=== PATIENT | male | born 1955 | race Caucasian/White ===

== ENCOUNTER 2019-04-18 23:36 | Inpatient (IN) | payer MEDICARE ==
--- NOTE | 2019-04-18 23:59 | ED ---
Wound/Laceration HPI - General Chief Complaint: Wound/Laceration Stated Complaint: Toe Pain Time Seen by Provider: 04/18/19 23:55 Source: patient Mode of arrival: ambulatory Limitations: no limitations - History of Present Illness Initial Comments: Glucose is 63-year-old diabetic male who presents to the emergency department today as a transfer from an outside facility. Patient was seen and evaluated on April 14 at an urgent care where he was prescribed Keflex for infection, patient reports he's been compliant with that medication however he's developed progressively worsening pain and swelling in his left great toe. Today he sought care at the outside facility where labs and imaging were obtained. Patient is to be hyperglycemic with glucose in the high 400s, patient was also noted to have x-ray findings consistent with osteomyelitis. She was given vancomycin, Zosyn and IV fluids. She was transferred to our department for admission to hospital and further management Patient reports that today the pain in his great toe became excruciating which is what prompted him to seek care at the outside facility. Patient admits he is poorly compliant diabetic does not check his sugars at home. - Related Data Allergies Allergy/AdvReac Type Severity Reaction Status Date / Time No Known Allergies Allergy Verified 04/18/19 23:54 Review of Systems ROS Statement: Those systems with pertinent positive or pertinent negative responses have been documented in the HPI. ROS Other: All systems not noted in ROS Statement are negative. 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 History of Any Multi-Drug Resistant Organisms: None Reported Past Surgical History: No Surgical Hx Reported Past Psychological History: No Psychological Hx Reported Smoking Status: Current every day smoker Past Alcohol Use History: None Reported Past Drug Use History: None Reported General Exam - General Exam Comments Initial Comments: Physical Exam GENERAL: Patient is well-developed and well-nourished. Patient is nontoxic and well-hydrated and is in no distress. HENT: Normocephalic, Atraumatic. EYES: PERRL, EOMI PULMONARY: Unlabored respirations. No audible rales rhonchi or wheezing was noted. CARDIOVASCULAR: There is a regular rate and rhythm without any murmurs gallops or rubs. ABDOMEN: Soft and nontender with normal bowel sounds. SKIN: Erythema of great toe No obvious abscess : Deferred NEUROLOGIC: Patient is alert and oriented x3. Moving all extremities spontaneously MUSCULOSKELETAL: Normal extremities with adequate strength and full range of motion. No lower extremity swelling or edema. No calf tenderness. PSYCHIATRIC: Normal psychiatric evaluation Limitations: no limitations Course Vital Signs 04/18/19 23:45 Temperature 99.1 F Pulse Rate 80 Respiratory 18 Rate Blood Pressure 165/69 O2 Sat by Pulse 96 Oximetry Medical Decision Making - Medical Decision Making Patient was seen and evaluated, history is obtained from the patient and review of medical record Patient with a diagnosis of osteomyelitis of the great toe with no signs of abscess or free air patient received think and Zosyn prior to transfer next line patient was noted to be hyperglycemic outside facility repeat blood glucose is improving Labs were ordered Insulin sliding scale was ordered care was discussed with Dr. Boggs accepts the admission for osteomyelitis - Lab Data Result diagrams: 04/19/19 00:40 04/19/19 00:40 Lab Results 04/19/19 04/19/19 04/19/19 Range/Units 00:27 00:40 00:40 WBC 10.3 (3.8-10.6) k/uL RBC 5.63 (4.30-5.90) m/uL Hgb 15.2 (13.0-17.5) gm/dL Hct 46.7 (39.0-53.0) % MCV 82.9 (80.0-100.0) fL MCH 26.9 (25.0-35.0) pg MCHC 32.5 (31.0-37.0) g/dL RDW 14.3 (11.5-15.5) % Plt Count 311 (150-450) k/uL Neutrophils % 63 % Lymphocytes % 30 % Monocytes % 5 % Eosinophils % 1 % Basophils % 0 % Neutrophils # 6.4 (1.3-7.7) k/uL Lymphocytes # 3.1 (1.0-4.8) k/uL Monocytes # 0.5 (0-1.0) k/uL Eosinophils # 0.1 (0-0.7) k/uL Basophils # 0.0 (0-0.2) k/uL Sodium 137 (137-145) mmol/L Potassium 3.7 (3.5-5.1) mmol/L Chloride 102 (98-107) mmol/L Carbon Dioxide 26 (22-30) mmol/L Anion Gap 9 mmol/L BUN 12 (9-20) mg/dL Creatinine 0.59 L (0.66-1.25) mg/dL Est GFR (CKD-EPI)AfAm >90 (>60 ml/min/1.73 sqM) Est GFR (CKD-EPI)NonAf >90 (>60 ml/min/1.73 sqM) Glucose 306 H (74-99) mg/dL POC Glucose (mg/dL) 283 H (75-99) mg/dL POC Glu Sole Level[employer] Machine ID Waleska Medley Calcium 8.8 (8.4-10.2) mg/dL Total Bilirubin 0.6 (0.2-1.3) mg/dL AST 16 L (17-59) U/L ALT 11 L (21-72) U/L Alkaline Phosphatase 139 H (38-126) U/L Total Protein 6.6 (6.3-8.2) g/dL Albumin 3.5 (3.5-5.0) g/dL Disposition Clinical Impression: Osteomyelitis, Diabetes, Hyperglycemia Disposition: ADMITTED IP TO THIS HOSP Condition: Stable Referrals: Nonstaff,Physician [REFERRING] - 1-2 days
[2019-04-19 00:29] LABS: Glucose,Whole Blood 283 mg/dL (75-99)
[2019-04-19] MEDS ORDERED: INSULIN ASPART (NovoLOG) 100 UNIT/ML VIAL SQ ONE ×2 (00:56→02:50)
[2019-04-19 01:20] LABS: Basophils % (A) 0 %; Eosinophils # (A) 0.1 k/uL (0-0.7); Eosinophils % (A) 1 %; HCT 46.7 % (39.0-53.0); HGB 15.2 gm/dL (13.0-17.5); Lymphocytes # (A) 3.1 k/uL (1.0-4.8); Lymphocytes % (A) 30 %; MCH 26.9 pg (25.0-35.0); MCHC 32.5 g/dL (31.0-37.0); MCV 82.9 fL (80.0-100.0); Mean Platelet Volume 7.2; Monocytes # (A) 0.5 k/uL (0-1.0); Monocytes % (A) 5 %; Neutrophils # (A) 6.4 k/uL (1.3-7.7); Neutrophils % (A) 63 %; Platelet Count 311 k/uL (150-450); RBC 5.63 m/uL (4.30-5.90); RDW 14.3 % (11.5-15.5); WBC 10.3 k/uL (3.8-10.6)
[2019-04-19 01:34] LABS: ALT 11 U/L (21-72); AST 16 U/L (17-59); African American GFR (CKD) >90 (>60 ml/min/1.73 sqM); Albumin 3.5 g/dL (3.5-5.0); Alkaline Phosphatase 139 U/L (38-126); Blood Urea Nitrogen 12 mg/dL (9-20); Calcium 8.8 mg/dL (8.4-10.2); Carbon Dioxide 26 mmol/L (22-30); Chloride 102 mmol/L (98-107); Glucose 306 mg/dL (74-99); Total Bilirubin 0.6 mg/dL (0.2-1.3); Total Protein 6.6 g/dL (6.3-8.2)
[2019-04-19] MEDS ORDERED: NALOXONE 0.4 MG/ML 1 ML VIAL IV PRN (01:44)
[2019-04-19 01:46] LABS: Anion Gap 9 mmol/L; Potassium 3.7 mmol/L (3.5-5.1); Sodium 137 mmol/L (137-145)
[2019-04-19 02:41] LABS: Glucose,Whole Blood 320 mg/dL (75-99)
[2019-04-19 04:22] LABS: Glucose,Whole Blood 261 mg/dL (75-99)
[2019-04-19 08:02] LABS: Glucose,Whole Blood 209 mg/dL (75-99)
[2019-04-19] MEDS: INSULIN ASPART (NovoLOG) 100 UNIT/ML VIAL SQ SCH ×4 (08:46→20:40)
--- NOTE | 2019-04-19 08:58 | P.HPIM ---
History of Present Illness H&P Date: 04/19/19 The patient is a 63 yo M with a PMH of poorly controlled DM, HTN, HLD, and gout who presented to the ED as a transfer from [place] for L toe osteomyelitis. The patient notes that his symptoms started 7-8 days ago when he noticed gradually worsening redness and pain of the L great toe. He does not recall any inciting trauma to the area. He visited an urgent care center on 04/14/19 where he was believed to have cellulitis and was given Keflex which the patient states he was compliant with. The patient's symptoms however did not improve and he continued to have redness, swelling, and pain of the great toe for which he went to the ED at [place]. The patient underwent a L foot x-ray which revealed findings consistent with active ostemyelitis of the L great distal phalanx. He was given doses of Vancomysin and Zosyn and was subsequently transferred to [place] ED. At time of the interview, patient states his pain is a 2/10. He states he also has been feeling generally unwell over the past few days, though denied fever, or chills. Denied chest pain, SOB, abdominal pain, nausea, vomiting, or diarrhea. The patient notes that he has been poorly compliant with his diabetes medications due to lack of help from his family. He has a PCP though can not recall his name. Laboratory evaluation in the ED revealed a WBC of 10.3, Hgb 15.2, platelets 311, BUN 21, Cr 0.59, and Glucose 283 on admission. He was admitted for further management of L great toe osteomyelitis. Review of Systems Pertinent positives and negatives as discussed in HPI, a complete review of systems was performed and all other systems are negative. 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 History of Any Multi-Drug Resistant Organisms: None Reported Past Surgical History: No Surgical Hx Reported Past Psychological History: No Psychological Hx Reported Smoking Status: Current every day smoker Past Alcohol Use History: None Reported Past Drug Use History: None Reported - Past Family History Father Family Medical History: Diabetes Mellitus Medications and Allergies Home Medications Medication Instructions Recorded Confirmed Type Ibuprofen [Motrin] 800 mg PO Q6H PRN 04/19/19 04/19/19 History Latanoprost [Xalatan 0.005%] 1 drop BOTH EYES HS 04/19/19 04/19/19 History Allergies Allergy/AdvReac Type Severity Reaction Status Date / Time No Known Allergies Allergy Verified 04/19/19 07:18 Physical Exam Vitals: Vital Signs Temp Pulse Pulse Resp BP BP Pulse Ox 04/19/19 07:00 98.0 F 65 18 132/67 138/63 98 04/19/19 02:32 98.9 F 88 18 126/101 95 04/18/19 23:45 99.1 F 80 18 165/69 96 Intake and Output 04/18/19 04/19/19 04/19/19 22:59 06:59 14:59 Other: Weight 74.843 kg General: non toxic, no distress, appears older than stated age, normal weight Derm: L great toe swelling, erythema, and tenderness, no unusual ecchymoses, warm, dry Head: atraumatic, normocephalic, symmetric Eyes: EOMI, no lid lag, anicteric sclera, pupils equal round reactive to light ENT: Nose and ears atraumatic, no thrush, no pharyngeal erythema Neck: No thyromegaly, no cervical lymphadenopathy, trachea midline, supple Mouth: no lip lesion, mucus membranes moist Cardiovascular: S1S2 reg, no murmur, positive posterior tibial pulse bilateral, no edema, capillary refill less than 2 seconds Lungs: CTA bilateral, no rhonchi, no rales , no accessory muscle use Abdominal: soft, nontender to palpation, no guarding, no appreciable organomegaly, normal bowel sounds Ext: no gross muscle atrophy, muscle strength 5 out of 5 in all 4 extremities grossly, no contractures, Neuro: CN II-XI grossly intact, light touch intact all 4 extremities, finger to nose within normal limits, Psych: Alert, oriented, appropriate affect Results CBC & Chem 7: 04/19/19 00:40 04/19/19 00:40 Labs: Abnormal Lab Results - Last 24 Hours (Table) 04/19/19 04/19/19 04/19/19 Range/Units 00:27 00:40 02:31 Creatinine 0.59 L (0.66-1.25) mg/dL Glucose 306 H (74-99) mg/dL POC Glucose (mg/dL) 283 H 320 H (75-99) mg/dL AST 16 L (17-59) U/L ALT 11 L (21-72) U/L Alkaline Phosphatase 139 H (38-126) U/L 04/19/19 04/19/19 Range/Units 04:19 07:54 Creatinine (0.66-1.25) mg/dL Glucose (74-99) mg/dL POC Glucose (mg/dL) 261 H 209 H (75-99) mg/dL AST (17-59) U/L ALT (21-72) U/L Alkaline Phosphatase (38-126) U/L Assessment and Plan Plan: L great toe osteomyelitis -C/w Vancomycin and Zosyn -ID consult -F/u cultures DM with hyperglycemia -Obtain medication list from pharmacy -CALEB with FS -Levemir 10 U qhs HTN, HLD -Obtain updated medication list and resume as warranted DVT prophylaxis -Heparin The patient is admitted with an anticipated greater than 2 midnight stay for evaluation of osteomyelitis. CODE STATUS:Full Code Discussed with: Patient Anticipated discharge date: 04/22/[address]: Home A total of 40 minutes was spent on the care of this complex patient more than 50% of the time was spent in counseling and care coordination.
[2019-04-19] MEDS ORDERED: VANCOMYCIN IV PER PHARMACY 1 EACH MISC MISCELLANE PRN (09:13)
[2019-04-19] MEDS: NICOTINE 21MG/24HR PATCH TRANSDERM SCH (10:35)
[2019-04-19] MEDS: VANCOMYCIN 1,250 MG in SODIUM CHLORIDE 0.9% 250 ML IVPB SCH ×2 (10:35→17:07)
[2019-04-19] MEDS: PIPERACILLIN-TAZOBACTAM 3.375 GM in SODIUM CHLORIDE 0.9% 100 ML IVPB SCH ×2 (10:35→17:06)
[2019-04-19 12:00] LABS: Glucose,Whole Blood 272 mg/dL (75-99)
--- NOTE | 2019-04-19 17:04 | XR ---
EXAMINATION TYPE: XR foot complete LT DATE OF EXAM: 04/19/2019 CLINICAL HISTORY: Pain and swelling, possible osteomyelitis. TECHNIQUE: Frontal, lateral, and oblique images of the left foot are obtained. COMPARISON: None FINDINGS: There is lucency with cortical destruction throughout the first distal phalanx most promin ent proximal to mid aspects. Joint space is maintained. Incidental accessory ossicle near the navicul ar bone. Incidental moderate size superior and inferior calcaneal spurs [id number] diffuse subc utaneous edema is present. First toe is focal moderately swollen. IMPRESSION: There is confirmation of acute osteomyelitis changes radiographically involving majority of the first distal phalanx. A Yellow level critical message alert has been initiated for Tyrone Bliss MD via the [employer] Critical Results System on 04/19/2019 5:02 PM. This message alert has been sent to Tyrone Bliss MD via the preferences provided by the clinician for the receipt of Radiology Critical Findings. Message ID [id number].
[2019-04-19] MEDS: HEPARIN SODIUM,PORCINE 5,000 UNIT/ML 1 ML VIAL SQ SCH (17:07)
[2019-04-19 17:36] LABS: Glucose,Whole Blood 276 mg/dL (75-99)
[2019-04-19 20:22] LABS: Glucose,Whole Blood 321 mg/dL (75-99)
[2019-04-19] MEDS: INSULIN DETEMIR (LEVEMIR) 100 UNIT/ML SYR SQ SCH (20:40)
[2019-04-19] MEDS: LATANOPROST 0.005% OPHTH DROPS 2.5 ML BTL BOTH EYES SCH (20:41)
--- NOTE | 2019-04-19 23:04 | P.CONS ---
History of Present Illness - Reason for Consult Consult date: 04/19/19 - Chief Complaint diabetic foot ulcer - History of Present Illness 63-year-old male who has multiple medical troubles that includes diabetes, hypertension, obesity and heart disease presents as a transfer from outside hospital. The patient relates that he's had troubles over the last week with the foot. He's noticed increasing amount of swelling to the left great toe. He's applied some local care. Because the local walk-in clinic and Keflex was given. Despite this he had no improvement as he presented to his local hospital. There he was found evidence of leukocytosis, the significant diabetic foot ulceration and x-ray showed evidence of osteomyelitis and constantly was transferred to our facility for further evaluation. At this time he relates that he feels somewhat poorly due to the difficulty. He is concerned about the foot infection but has ongoing difficulties with his hyperglycemia. Review of Systems HEENT:Denies headache or acute visual change. Denies sinus or mouth discomforts. Denies neck stiffness or pain. Denies significant oral cavity pain. Denies difficulty on swallowing. Lungs: Denies significant shortness of breath, cough, sputum production, or hemoptysis. Cardiovascular: Denies significant shortness of breath, chest pain, chest wall pain, orthopnea, dyspnea on exertion, syncope Gastrointestinal:Denies nausea, vomiting, diarrhea, constipation, hematemesis, melena, hematochezia. No no significant change of bowel habit noticed. Musculoskeletal: denies significant myalgias or arthralgias. No new joint s welling. Denies new back pain. Skin: ulceration left great toe Neuro: Denies headache or visual change. Denies any new onset weakness or difficulty with ambulation. Denies falls or seizures. Psychiatric:Denies anxiety or depression. Endocrine: Denies significant fatigue, denies significant weight loss or weight gain. 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 History of Any Multi-Drug Resistant Organisms: None Reported Past Surgical History: No Surgical Hx Reported Past Anesthesia/Blood Transfusion Reactions: No Reported Reaction Past Psychological History: No Psychological Hx Reported Additional Psychological History / Comment(s): single. Lives with his sister. International travel. no experience. No animal exposures. Positive tobacco use. no significant alcohol or recreatiotional drug use Smoking Status: Current every day smoker Past Alcohol Use History: None Reported Past Drug Use History: None Reported - Past Family History Father Family Medical History: Diabetes Mellitus Medications and Allergies Home Medications and Allergies Comment(s): Current Medications Heparin Sodium (Porcine) (Heparin) 5,000 unit SQ Q8HR [facility] Last Admin: 04/19/19 17:07 Dose: 5,000 unit Documented by: Piperacillin Sod/Tazobactam (Sod 3.375 gm/ Sodium Chloride) 100 mls @ 25 mls/hr IVPB Q8HR [facility] Last Admin: 04/19/19 17:06 Dose: 25 mls/hr Documented by: Vancomycin HCl 1,250 mg/ (Sodium Chloride) 250 mls @ 125 mls/hr IVPB Q8H [facility] Last Admin: 04/19/19 17:07 Dose: 125 mls/hr Documented by: Insulin Aspart (Novolog) [address] [facility]; Protocol Last Admin: 04/19/19 20:40 Dose: 5 unit Documented by: Insulin Detemir (Levemir) [address] [facility] Last Admin: 04/19/19 20:40 Dose: 10 unit Documented by: Latanoprost (Xalatan 0.005%) [address] [facility] Last Admin: 04/19/19 20:41 Dose: 1 drops Documented by: Miscellaneous Information (Vancomycin Trough Due) 0 each MISCELLANE DIRECTED ONE Stop: 04/20/19 07:01 Naloxone HCl (Narcan) 0.2 mg IV Q2M PRN PRN Reason: Opioid Reversal Nicotine (Habitrol 21mg/24hr Patch) 1 patch TRANSDERM DAILY [facility] Last Admin: 04/19/19 10:35 Dose: 1 patch Documented by: Oxycodone/Acetaminophen (Percocet 5-325) 1 each PO Q6HR PRN PRN Reason: Pain Home Medications Medication Instructions Recorded Confirmed Type Ibuprofen [Motrin] 800 mg PO Q6H PRN 04/19/19 04/19/19 History Latanoprost [Xalatan 0.005%] 1 drop BOTH EYES HS 04/19/19 04/19/19 History Allergies Allergy/AdvReac Type Severity Reaction Status Date / Time No Known Allergies Allergy Verified 04/19/19 07:18 Physical Exam Vitals: Vital Signs Temp Pulse Pulse Pulse Pulse Resp BP 04/19/19 21:33 98.6 F 75 20 04/19/19 14:13 98.9 F 65 18 04/19/19 07:00 98.0 F 65 18 132/67 04/19/19 02:32 98.9 F 88 18 126/101 04/18/19 23:45 99.1 F 80 18 165/69 BP Pulse Ox 04/19/19 21:33 111/56 98 04/19/19 14:13 138/63 98 04/19/19 07:00 138/63 98 04/19/19 02:32 95 04/18/19 23:45 96 Intake and Output 04/19/19 04/19/19 04/19/19 06:59 14:59 22:59 Intake Total 350 350 Balance 350 350 Intake: Oral 350 350 Other: # Voids 1 Weight 74.843 kg HEENT: Anicteric conjunctiva are pink and moist nasal mucosa grossly intact without significant lesions, there is no thrush.poor dentition Neck: The neck is supple without significant lymphadenopathy or thyromegaly. Lungs: Symmetrical air entry with scattered wheezes in lung roman without shahriar bronchial sounds in all dullness or egophony. Heart: Regular rate and rhythm with an audible S1-S2, no S3 no S4. There is no significant murmur click or rub, PMI was nondisplaced. Abdomen: Positive bowel sounds soft and nontender without palpable masses or organomegaly. There was no guarding or rebound. Extremities: The upper extremities have excellent pulses they are symmetric, no significant petechiae or telangiectasia. No splinter hemorrhages were noted. The right lower extremity is without acute abnormality is. The left foot shows evidence of the ulceration and swelling to the left great toe with distinct erythema and deformity. There is some erythema and swelling onto the dorsum of the foot and minimal ascending erythema. It is not very tender. Neuro: Awake alert oriented to person place and time. There are no acute new gross focal sensory motor deficits. Results CBC & Chem 7: 04/19/19 00:40 04/19/19 00:40 Labs: Abnormal Lab Results - Last 24 Hours (Table) 04/19/19 04/19/19 04/19/19 Range/Units 00:27 00:40 02:31 ESR (0-15) mm/hr Creatinine 0.59 L (0.66-1.25) mg/dL Glucose 306 H (74-99) mg/dL POC Glucose (mg/dL) 283 H 320 H (75-99) mg/dL AST 16 L (17-59) U/L ALT 11 L (21-72) U/L Alkaline Phosphatase 139 H (38-126) U/L C-Reactive Protein (<10.0) mg/L 04/19/19 04/19/19 04/19/19 Range/Units 04:19 07:54 08:58 ESR (0-15) mm/hr Creatinine (0.66-1.25) mg/dL Glucose (74-99) mg/dL POC Glucose (mg/dL) 261 H 209 H (75-99) mg/dL AST (17-59) U/L ALT (21-72) U/L Alkaline Phosphatase (38-126) U/L C-Reactive Protein 173.5 H (<10.0) mg/L 04/19/19 04/19/19 04/19/19 Range/Units 08:58 11:57 17:34 ESR 55 H (0-15) mm/hr Creatinine (0.66-1.25) mg/dL Glucose (74-99) mg/dL POC Glucose (mg/dL) 272 H 276 H (75-99) mg/dL AST (17-59) U/L ALT (21-72) U/L Alkaline Phosphatase (38-126) U/L C-Reactive Protein (<10.0) mg/L 04/19/19 Range/Units 20:15 ESR (0-15) mm/hr Creatinine (0.66-1.25) mg/dL Glucose (74-99) mg/dL POC Glucose (mg/dL) 321 H (75-99) mg/dL AST (17-59) U/L ALT (21-72) U/L Alkaline Phosphatase (38-126) U/L C-Reactive Protein (<10.0) mg/L Laboratory Results WBC 10.3 k/uL (3.8-10.6) 04/19/19 00:40 RBC 5.63 m/uL (4.30-5.90) 04/19/19 00:40 Hgb 15.2 gm/dL (13.0-17.5) 04/19/19 00:40 Hct 46.7 % (39.0-53.0) 04/19/19 00:40 MCV 82.9 fL (80.0-100.0) 04/19/19 00:40 MCH 26.9 pg (25.0-35.0) 04/19/19 00:40 MCHC 32.5 g/dL (31.0-37.0) 04/19/19 00:40 RDW 14.3 % (11.5-15.5) 04/19/19 00:40 Plt Count 311 k/uL (150-450) 04/19/19 00:40 Neutrophils % 63 % 04/19/19 00:40 Lymphocytes % 30 % 04/19/19 00:40 Monocytes % 5 % 04/19/19 00:40 Eosinophils % 1 % 04/19/19 00:40 Basophils % 0 % 04/19/19 00:40 Neutrophils # 6.4 k/uL (1.3-7.7) 04/19/19 00:40 Lymphocytes # 3.1 k/uL (1.0-4.8) 04/19/19 00:40 Monocytes # 0.5 k/uL (0-1.0) 04/19/19 00:40 Eosinophils # 0.1 k/uL (0-0.7) 04/19/19 00:40 Basophils # 0.0 k/uL (0-0.2) 04/19/19 00:40 ESR 55 mm/hr (0-15) H 04/19/19 08:58 Sodium 137 mmol/L (137-145) 04/19/19 00:40 Potassium 3.7 mmol/L (3.5-5.1) 04/19/19 00:40 Chloride 102 mmol/L (98-107) 04/19/19 00:40 Carbon Dioxide 26 mmol/L (22-30) 04/19/19 00:40 Anion Gap 9 mmol/L 04/19/19 00:40 BUN 12 mg/dL (9-20) 04/19/19 00:40 Creatinine 0.59 mg/dL (0.66-1.25) L 04/19/19 00:40 Est GFR (CKD-EPI)AfAm >90 (>60 ml/min/1.73 sqM) 04/19/19 00:40 Est GFR (CKD-EPI)NonAf >90 (>60 ml/min/1.73 sqM) 04/19/19 00:40 Glucose 306 mg/dL (74-99) H 04/19/19 00:40 POC Glucose (mg/dL) 321 mg/dL (75-99) H 04/19/19 20:15 POC Glu Crystal Lapper Nehal Donohue 04/19/19 20:15 Calcium 8.8 mg/dL (8.4-10.2) 04/19/19 00:40 Total Bilirubin 0.6 mg/dL (0.2-1.3) 04/19/19 00:40 AST 16 U/L (17-59) L 04/19/19 00:40 ALT 11 U/L (21-72) L 04/19/19 00:40 Alkaline Phosphatase 139 U/L (38-126) H 04/19/19 00:40 C-Reactive Protein 173.5 mg/L (<10.0) H 04/19/19 08:58 Total Protein 6.6 g/dL (6.3-8.2) 04/19/19 00:40 Albumin 3.5 g/dL (3.5-5.0) 04/19/19 00:40 Assessment and Plan (1) Diabetes Current Visit: Yes Status: Acute Code(s): E11.9 - TYPE 2 DIABETES MELLITUS WITHOUT COMPLICATIONS SNOMED Code(s): 92155568 (2) Diabetic ulcer of foot associated with diabetes mellitus due to underlying condition, with necrosis of bone Narrative/Plan: 63-year-old male with multiple medical troubles presents to hospital with change to his left foot. He noticed some swelling erythema and ulceration that it was having some drainage. Despite oral outpatient antibiotic therapy he was not improving and constantly was seen by his local hospital. Transferred to our facility for further intervention for the osteomyelitis of the left great toe. The patient has diabetes and understands importance of good diabetes control. Antibiotic therapy has been initiated with vancomycin and Zosyn while cultures are pending. Follow-up x-rays requested to ensure the extent of the current osteomyelitis. If he has not had vascular studies he would need to have those performed. Smoking cessation is advised. Multivitamin with zinc is added to his regimen. Hopefully we'll the following the wound healing center after his discharge which may be a challenge but may do well for wound center therapy. Current Visit: Yes Status: Acute Code(s): E08.621 - DIABETES MELLITUS DUE TO UNDERLYING CONDITION W FOOT ULCER; L97.504 - NON-PRS CHRONIC ULCER OTH PRT UNSP FOOT W NECROSIS OF BONE SNOMED Code(s): 590862707
[2019-04-20] MEDS: HEPARIN SODIUM,PORCINE 5,000 UNIT/ML 1 ML VIAL SQ SCH ×4 (00:04→23:11)
[2019-04-20] MEDS: PIPERACILLIN-TAZOBACTAM 3.375 GM in SODIUM CHLORIDE 0.9% 100 ML IVPB SCH ×4 (00:04→23:11)
[2019-04-20] MEDS: VANCOMYCIN 1,250 MG in SODIUM CHLORIDE 0.9% 250 ML IVPB SCH ×3 (00:45→17:38)
[2019-04-20] MEDS: oxyCODONE-APAP 5-325MG 1 EACH TAB PO PRN ×2 (00:45→10:49)
[2019-04-20] MEDS ORDERED: VANCOMYCIN TROUGH DUE 1 EACH MISC MISCELLANE ONE (07:00)
[2019-04-20 07:27] LABS: Glucose,Whole Blood 156 mg/dL (75-99)
[2019-04-20] MEDS: INSULIN ASPART (NovoLOG) 100 UNIT/ML VIAL SQ SCH ×4 (07:29→21:30)
[2019-04-20] MEDS: NICOTINE 21MG/24HR PATCH TRANSDERM SCH (07:29)
[2019-04-20] MEDS: MULTIVITAMINS, THERA 1 EACH TAB PO SCH (07:29)
[2019-04-20 08:19] LABS: HCT 43.7 % (39.0-53.0); HGB 13.8 gm/dL (13.0-17.5); MCH 27.1 pg (25.0-35.0); MCHC 31.6 g/dL (31.0-37.0); MCV 85.6 fL (80.0-100.0); Mean Platelet Volume 7.2; Platelet Count 336 k/uL (150-450); RDW 14.1 % (11.5-15.5); WBC 9.2 k/uL (3.8-10.6)
[2019-04-20 08:41] LABS: ALT 16 U/L (21-72); AST 14 U/L (17-59); African American GFR (CKD) >90 (>60 ml/min/1.73 sqM); Albumin 3.4 g/dL (3.5-5.0); Alkaline Phosphatase 121 U/L (38-126); Anion Gap 8 mmol/L; Blood Urea Nitrogen 15 mg/dL (9-20); Carbon Dioxide 30 mmol/L (22-30); Chloride 102 mmol/L (98-107); Glucose 185 mg/dL (74-99); Potassium 3.8 mmol/L (3.5-5.1); Sodium 140 mmol/L (137-145); Total Bilirubin 0.5 mg/dL (0.2-1.3); Total Protein 6.4 g/dL (6.3-8.2)
[2019-04-20 11:23] LABS: Glucose,Whole Blood 258 mg/dL (75-99)
[2019-04-20 13:30] LABS: Hemoglobin A1C 15.6 % (4.0-6.0)
[2019-04-20 17:10] LABS: Glucose,Whole Blood 153 mg/dL (75-99)
--- NOTE | 2019-04-20 18:51 | P.PN ---
Subjective Progress Note Date: 04/20/19 Principal diagnosis: Osteomyelitis Patient was seen and examined. No acute events overnight. Patient reports no changes in his overall condition. He denies any chest pain, shortness of breath or palpitations. Objective - Vital Signs Vital signs: Vital Signs Temp 97.5 F L 04/20/19 12:42 Pulse 78 04/20/19 12:42 Resp 16 04/20/19 12:42 BP 167/72 04/20/19 12:42 Pulse Ox 97 04/20/19 12:42 Intake & Output 04/19/19 04/20/19 04/20/19 18:59 06:59 18:59 Intake Total 700 800 540 Balance 700 800 540 Intake: Oral 700 800 540 Other: # Voids 1 2 5 - Exam General: [non toxic], [no distress], [appears at stated age] Derm: [warm], [dry] Head: [atraumatic], [normocephalic], [symmetric] Eyes: [EOMI], [no lid lag], [anicteric sclera] Mouth: [no lip lesion], [mucus membranes moist] Cardiovascular: [S1S2 reg], [no murmur], [positive posterior tibial pulse bilateral], Lungs: [CTA bilateral], [no rhonchi, no rales] , [no accessory muscle use] Abdominal: [soft], [ nontender to palpation], [no guarding], [no appreciable organomegaly] Ext: [no gross muscle atrophy], [no edema], [left foot wrapped dressing clean d ry and intact] Neuro: [no focal neuro deficits] Psych: [Alert], [oriented], [appropriate affect] - Labs CBC & Chem 7: 04/20/19 08:00 04/20/19 08:00 Labs: Abnormal Lab Results - Last 24 Hours (Table) 04/19/19 04/19/19 04/20/19 Range/Units 08:58 20:15 06:57 Glucose (74-99) mg/dL POC Glucose (mg/dL) 321 H 156 H (75-99) mg/dL Hemoglobin A1c 15.6 H (4.0-6.0) % AST (17-59) U/L ALT (21-72) U/L Albumin (3.5-5.0) g/dL 04/20/19 04/20/19 04/20/19 Range/Units 08:00 11:20 17:07 Glucose 185 H (74-99) mg/dL POC Glucose (mg/dL) 258 H 153 H (75-99) mg/dL Hemoglobin A1c (4.0-6.0) % AST 14 L (17-59) U/L ALT 16 L (21-72) U/L Albumin 3.4 L (3.5-5.0) g/dL Microbiology - Last 24 Hours (Table) 04/19/19 08:58 Blood Culture - Preliminary Blood No Growth after 24 hours Assessment and Plan Assessment: Left great toe osteomyelitis Hyperglycemia with history of diabetes mellitus Hypertension As seen on x-ray. Plans: Continue vancomycin and Zosyn. Follow blood cultures. Follow ID consultation. Plans: Levemir 10 units at bedtime. Insulin sliding-scale. Regular Accu-Cheks. Hypoglycemic precautions. BP 167/72. Plans: Monitor vitals, adjust medications as necessary. We will discuss with infectious disease recommendations for antibiotics and the need for biopsy in this case. Patient is pending clinical improvement. Likely DC in 1-2 days.
[2019-04-20 20:39] LABS: Glucose,Whole Blood 241 mg/dL (75-99)
[2019-04-20] MEDS: INSULIN DETEMIR (LEVEMIR) 100 UNIT/ML SYR SQ SCH (21:30)
[2019-04-20] MEDS: LATANOPROST 0.005% OPHTH DROPS 2.5 ML BTL BOTH EYES SCH (21:30)
--- NOTE | 2019-04-20 23:22 | P.PN ---
Subjective Progress Note Date: 04/20/19 63-year-old male who has multiple medical troubles that includes diabetes, hypertension, obesity and heart disease presents as a transfer from outside hospital. The patient relates that he's had troubles over the last week with the foot. He's noticed increasing amount of swelling to the left great toe. He's applied some local care. Because the local walk-in clinic and Keflex was given. Despite this he had no improvement as he presented to his local hospital. There he was found evidence of leukocytosis, the significant diabetic foot ulceration and x-ray showed evidence of osteomyelitis and constantly was transferred to our facility for further evaluation. At this time he relates th at he feels somewhat poorly due to the difficulty. He is concerned about the foot infection but has ongoing difficulties with his hyperglycemia. 04/20/2019 the patient which is feeling somewhat better than at the toe is opened and drained some purulent material which was sent to the lab for culture. Blood sugars are slightly improved and the radiology department is verified the significant ostial myelitis left great toe of almost the entire distal phalanx. Patient denies fevers or chills discharge plan is being evaluated. Objective - Vital Signs Vital signs: Vital Signs Temp 98.0 F 04/20/19 20:35 Pulse 77 04/20/19 20:35 Resp 20 04/20/19 20:35 BP 150/70 04/20/19 20:35 Pulse Ox 99 04/20/19 20:35 Intake & Output 04/20/19 04/20/19 04/21/19 06:59 18:59 06:59 Intake Total 800 540 Output Total 400 Balance 800 540 -400 Intake: Oral 800 540 Output: Urine 400 Other: # Voids 2 5 - Exam HEENT: Anicteric conjunctiva are pink and moist nasal mucosa grossly intact without significant lesions, there is no thrush.poor dentition Neck: The neck is supple without significant lymphadenopathy or thyromegaly. Lungs: Symmetrical air entry with scattered wheezes in lung roman without shahriar bronchial sounds in all dullness or egophony. Heart: Regular rate and rhythm with an audible S1-S2, no S3 no S4. There is no significant murmur click or rub, PMI was nondisplaced. Abdomen: Positive bowel sounds soft and nontender without palpable masses or organomegaly. There was no guarding or rebound. Extremities: The upper extremities have excellent pulses they are symmetric, no significant petechiae or telangiectasia. No splinter hemorrhages were noted. The right lower extremity is without acute abnormality is. The left foot shows evidence of the ulceration and swelling to the left great toe with distinct erythema and deformity. there is now some drainage which was sent to the laboratory for culture. There is some erythema and swelling onto the dorsum of the foot and minimal ascending erythema. It is not very tender. Neuro: Awake alert oriented to person place and time. - Labs CBC & Chem 7: 04/20/19 08:00 04/20/19 08:00 Labs: Abnormal Lab Results - Last 24 Hours (Table) 04/19/19 04/20/19 04/20/19 Range/Units 08:58 06:57 08:00 Glucose 185 H (74-99) mg/dL POC Glucose (mg/dL) 156 H (75-99) mg/dL Hemoglobin A1c 15.6 H (4.0-6.0) % AST 14 L (17-59) U/L ALT 16 L (21-72) U/L Albumin 3.4 L (3.5-5.0) g/dL 04/20/19 04/20/19 04/20/19 Range/Units 11:20 17:07 20:38 Glucose (74-99) mg/dL POC Glucose (mg/dL) 258 H 153 H 241 H (75-99) mg/dL Hemoglobin A1c (4.0-6.0) % AST (17-59) U/L ALT (21-72) U/L Albumin (3.5-5.0) g/dL Microbiology - Last 24 Hours (Table) 04/19/19 08:58 Blood Culture - Preliminary Blood No Growth after 24 hours Laboratory Results WBC 9.2 k/uL (3.8-10.6) 04/20/19 08:00 RBC 5.10 m/uL (4.30-5.90) 04/20/19 08:00 Hgb 13.8 gm/dL (13.0-17.5) 04/20/19 08:00 Hct 43.7 % (39.0-53.0) 04/20/19 08:00 MCV 85.6 fL (80.0-100.0) 04/20/19 08:00 MCH 27.1 pg (25.0-35.0) 04/20/19 08:00 MCHC 31.6 g/dL (31.0-37.0) 04/20/19 08:00 RDW 14.1 % (11.5-15.5) 04/20/19 08:00 Plt Count 336 k/uL (150-450) 04/20/19 08:00 Neutrophils % 63 % 04/19/19 00:40 Lymphocytes % 30 % 04/19/19 00:40 Monocytes % 5 % 04/19/19 00:40 Eosinophils % 1 % 04/19/19 00:40 Basophils % 0 % 04/19/19 00:40 Neutrophils # 6.4 k/uL (1.3-7.7) 04/19/19 00:40 Lymphocytes # 3.1 k/uL (1.0-4.8) 04/19/19 00:40 Monocytes # 0.5 k/uL (0-1.0) 04/19/19 00:40 Eosinophils # 0.1 k/uL (0-0.7) 04/19/19 00:40 Basophils # 0.0 k/uL (0-0.2) 04/19/19 00:40 ESR 55 mm/hr (0-15) H 04/19/19 08:58 Sodium 140 mmol/L (137-145) 04/20/19 08:00 Potassium 3.8 mmol/L (3.5-5.1) 04/20/19 08:00 Chloride 102 mmol/L (98-107) 04/20/19 08:00 Carbon Dioxide 30 mmol/L (22-30) 04/20/19 08:00 Anion Gap 8 mmol/L 04/20/19 08:00 BUN 15 mg/dL (9-20) 04/20/19 08:00 Creatinine 0.76 mg/dL (0.66-1.25) 04/20/19 08:00 Est GFR (CKD-EPI)AfAm >90 (>60 ml/min/1.73 sqM) 04/20/19 08:00 Est GFR (CKD-EPI)NonAf >90 (>60 ml/min/1.73 sqM) 04/20/19 08:00 Glucose 185 mg/dL (74-99) H 04/20/19 08:00 POC Glucose (mg/dL) 241 mg/dL (75-99) H 04/20/19 20:38 POC Glu Dental Resident ID Isamar Bose 04/20/19 20:[address] Glu mg/dL 401 04/19/19 08:58 Hemoglobin A1c 15.6 % (4.0-6.0) H 04/19/19 08:58 Calcium 9.0 mg/dL (8.4-10.2) 04/20/19 08:00 Total Bilirubin 0.5 mg/dL (0.2-1.3) 04/20/19 08:00 AST 14 U/L (17-59) L 04/20/19 08:00 ALT 16 U/L (21-72) L 04/20/19 08:00 Alkaline Phosphatase 121 U/L (38-126) 04/20/19 08:00 C-Reactive Protein 173.5 mg/L (<10.0) H 04/19/19 08:58 Total Protein 6.4 g/dL (6.3-8.2) 04/20/19 08:00 Albumin 3.4 g/dL (3.5-5.0) L 04/20/19 08:00 Vancomycin Trough 14.2 ug/mL 04/20/19 08:00 Microbiology 04/19/19 08:58 Blood Blood Culture - Preliminary No Growth after 24 hours - Imaging and Cardiology x-ray of the foot is evaluated and reviewed personally show eviden left great toe osteomyelitis with significant involvement of the distal phalanx Assessment and Plan (1) Diabetes Current Visit: Yes Status: Acute Code(s): E11.9 - TYPE 2 DIABETES MELLITUS WITHOUT COMPLICATIONS SNOMED Code(s): 19743732 (2) Diabetic ulcer of foot associated with diabetes mellitus due to underlying condition, with necrosis of bone Narrative/Plan: 63-year-old male with multiple medical troubles presents to hospital with change to his left foot. He noticed some swelling erythema and ulceration that it was having some drainage. Despite oral outpatient antibiotic therapy he was not improving and constantly was seen by his local hospital. Transferred to our facility for further intervention for the osteomyelitis of the left great toe. The patient has diabetes and understands importance of good diabetes control. Antibiotic therapy has been initiated with vancomycin and Zosyn while cultures are pending. Follow-up x-rays requested to ensure the extent of the current osteomyelitis. If he has not had vascular studies he would need to have those performed. Smoking cessation is advised. Multivitamin with zinc is added to his regimen. Hopefully we'll the following the wound healing center after his discharge which may be a challenge but may do well for wound center therapy. 04/20/2019 the patient has evidence of the osteomyelitis left great toe. There is distinct destruction. With some drainage today he is feeling somewhat better. Cultures are process which will further help. The course of antibiotic therapy at discharge. Unclear with the discharge plan is going to be at this time but intravenous antibiotic therapy will be required and may require surgical intervention. May be a candidate for hyperbaric oxygen therapy. Arterial Dopplers requested. Current Visit: Yes Status: Acute Code(s): E08.621 - DIABETES MELLITUS DUE TO UNDERLYING CONDITION W FOOT ULCER; L97.504 - NON-PRS CHRONIC ULCER OTH PRT UNSP FOOT W NECROSIS OF BONE SNOMED Code(s): 208132585
[2019-04-21] MEDS: VANCOMYCIN 1,250 MG in SODIUM CHLORIDE 0.9% 250 ML IVPB SCH ×3 (01:04→17:38)
[2019-04-21] MEDS: MULTIVITAMINS, THERA 1 EACH TAB PO SCH (07:23)
[2019-04-21] MEDS: PIPERACILLIN-TAZOBACTAM 3.375 GM in SODIUM CHLORIDE 0.9% 100 ML IVPB SCH ×2 (07:23→15:08)
[2019-04-21] MEDS: NICOTINE 21MG/24HR PATCH TRANSDERM SCH (07:23)
[2019-04-21] MEDS: HEPARIN SODIUM,PORCINE 5,000 UNIT/ML 1 ML VIAL SQ SCH ×2 (07:24→15:08)
[2019-04-21 07:35] LABS: Glucose,Whole Blood 167 mg/dL (75-99)
[2019-04-21] MEDS: INSULIN ASPART (NovoLOG) 100 UNIT/ML VIAL SQ SCH ×4 (07:44→21:01)
[2019-04-21 11:33] LABS: Glucose,Whole Blood 267 mg/dL (75-99)
--- NOTE | 2019-04-21 12:08 | P.PN ---
Subjective Progress Note Date: 04/21/19 Principal diagnosis: Infected left toe Patient was seen and examined. No acute events overnight. Patient reports some drainage from the left toe, requesting dressings to be changed. He denies any chest pain, shortness of breath or palpitations. No nausea or vomiting. No fev er or chills. Objective - Vital Signs Vital signs: Vital Signs Temp 98.0 F 04/21/19 05:50 Pulse 71 04/21/19 05:50 Resp 20 04/21/19 05:50 BP 150/75 04/21/19 05:50 Pulse Ox 98 04/21/19 05:50 Intake & Output 04/20/19 04/21/19 04/21/19 18:59 06:59 18:59 Intake Total 540 Output Total 1500 Balance 540 -1500 Intake: Oral 540 Output: Urine 1500 Other: # Voids 5 - Exam General: [non toxic], [no distress], [appears at stated age] Derm: [warm], [dry] Head: [atraumatic], [normocephalic], [symmetric] Eyes: [EOMI], [no lid lag], [anicteric sclera] Mouth: [no lip lesion], [mucus membranes moist] Cardiovascular: [S1S2 reg], [no murmur], [positive DP pulse bilateral], Lungs: [CTA bilateral], [no rhonchi, no rales] , [no accessory muscle use] Abdominal: [soft], [ nontender to palpation], [no guarding], [no appreciable organomegaly] Ext: [no gross muscle atrophy], [no edema], [left foot wrapped with serosang uineous discharge] Neuro: [no focal neuro deficits] Psych: [Alert], [oriented], [appropriate affect] - Labs CBC & Chem 7: 04/20/19 08:00 04/20/19 08:00 Labs: Abnormal Lab Results - Last 24 Hours (Table) 04/19/19 04/20/19 04/20/19 Range/Units 08:58 17:07 20:38 POC Glucose (mg/dL) 153 H 241 H (75-99) mg/dL Hemoglobin A1c 15.6 H (4.0-6.0) % 04/21/19 04/21/19 Range/Units 07:26 11:16 POC Glucose (mg/dL) 167 H 267 H (75-99) mg/dL Hemoglobin A1c (4.0-6.0) % Microbiology - Last 24 Hours (Table) 04/19/19 08:58 Blood Culture - Preliminary Blood No Growth after 48 hours Assessment and Plan Assessment: Left great toe osteomyelitis Hyperglycemia with history of diabetes mellitus Hypertension As seen on x-ray. Plans: Continue vancomycin and Zosyn. Follow blood cultures. Follow wound cultures. Follow [facility]ABIO. Follow ID consultation. [id number] glucose 267. Plans: Levemir 10 units at bedtime. Insulin sliding-scale. Regular Accu-Cheks. Hypoglycemic precautions. BP 150/75. Plans: Monitor vitals, adjust medications as necessary. Plans for arterial duplex to assess for blood flow. If poor, will consult surgery. Continue IV antibiotics, follow up cultures. Likely DC in 1-2 days.
[2019-04-21 15:47] VITALS: BMI 23.0
[2019-04-21 17:21] LABS: Glucose,Whole Blood 239 mg/dL (75-99)
[2019-04-21 20:34] LABS: Glucose,Whole Blood 251 mg/dL (75-99)
[2019-04-21] MEDS: INSULIN DETEMIR (LEVEMIR) 100 UNIT/ML SYR SQ SCH (21:01)
[2019-04-21] MEDS: LATANOPROST 0.005% OPHTH DROPS 2.5 ML BTL BOTH EYES SCH (21:01)
[2019-04-22] MEDS: PIPERACILLIN-TAZOBACTAM 3.375 GM in SODIUM CHLORIDE 0.9% 100 ML IVPB SCH ×3 (00:03→16:43)
[2019-04-22] MEDS: HEPARIN SODIUM,PORCINE 5,000 UNIT/ML 1 ML VIAL SQ SCH ×3 (00:03→16:42)
--- NOTE | 2019-04-22 00:03 | P.PN ---
Subjective Progress Note Date: 04/21/19 63-year-old male who has multiple medical troubles that includes diabetes, hypertension, obesity and heart disease presents as a transfer from outside hospital. The patient relates that he's had troubles over the last week with the foot. He's noticed increasing amount of swelling to the left great toe. He's applied some local care. Because the local walk-in clinic and Keflex was given. Despite this he had no improvement as he presented to his local hospital. There he was found evidence of leukocytosis, the significant diabetic foot ulceration and x-ray showed evidence of osteomyelitis and constantly was transferred to our facility for further evaluation. At this time he relates th at he feels somewhat poorly due to the difficulty. He is concerned about the foot infection but has ongoing difficulties with his hyperglycemia. 04/20/2019 the patient which is feeling somewhat better than at the toe is opened and drained some purulent material which was sent to the lab for culture. Blood sugars are slightly improved and the radiology department is verified the significant ostial myelitis left great toe of almost the entire distal phalanx. Patient denies fevers or chills discharge plan is being evaluated. 04/21/2019 patient does seem to be feeling somewhat better. Is having no significant pain to the toe since the site has drained. X-ray reveals evidence of the osteomyelitis of the left great toe of the entire distal phalanx. Transfer to rehab is being evaluated at this time for ongoing antibiotic therapy. Objective - Vital Signs Vital signs: Vital Signs Temp 98.0 F 04/21/19 20:35 Pulse 71 04/21/19 20:35 Resp 18 04/21/19 20:35 BP 158/82 04/21/19 20:35 Pulse Ox 98 04/21/19 20:35 Intake & Output 04/21/19 04/21/19 04/22/19 06:59 18:59 06:59 Intake Total 1080 Output Total 1500 Balance -1500 1080 Weight 74.843 kg Intake: Oral 1080 Output: Urine 1500 Other: Voiding Method Urinal # Voids 3 1 - Exam HEENT: Anicteric conjunctiva are pink and moist nasal mucosa grossly intact wi thout significant lesions, there is no thrush.poor dentition Neck: The neck is supple without significant lymphadenopathy or thyromegaly. Lungs: Symmetrical air entry with scattered wheezes in lung roman without shahriar bronchial sounds in all dullness or egophony. Heart: Regular rate and rhythm with an audible S1-S2, no S3 no S4. There is no significant murmur click or rub, PMI was nondisplaced. Abdomen: Positive bowel sounds soft and nontender without palpable masses or organomegaly. There was no guarding or rebound. Extremities: The upper extremities have excellent pulses they are symmetric, no significant petechiae or telangiectasia. No splinter hemorrhages were noted. The right lower extremity is without acute abnormality is. The left foot shows evidence of the ulceration and swelling to the left great toe with distinct erythema and deformity. there is now some drainage which was sent to the laboratory for culture. There is some erythema and swelling onto the dorsum of the foot and minimal ascending erythema. It is not very tender. Neuro: Awake alert oriented to person place - Labs CBC & Chem 7: 04/20/19 08:00 04/20/19 08:00 Labs: Abnormal Lab Results - Last 24 Hours (Table) 04/21/19 04/21/19 04/21/19 Range/Units 07:26 11:16 17:12 POC Glucose (mg/dL) 167 H 267 H 239 H (75-99) mg/dL 04/21/19 Range/Units 20:32 POC Glucose (mg/dL) 251 H (75-99) mg/dL Microbiology - Last 24 Hours (Table) 04/19/19 08:58 Blood Culture - Preliminary Blood No Growth after 48 hours Laboratory Results WBC 9.2 k/uL (3.8-10.6) 04/20/19 08:00 RBC 5.10 m/uL (4.30-5.90) 04/20/19 08:00 Hgb 13.8 gm/dL (13.0-17.5) 04/20/19 08:00 Hct 43.7 % (39.0-53.0) 04/20/19 08:00 MCV 85.6 fL (80.0-100.0) 04/20/19 08:00 MCH 27.1 pg (25.0-35.0) 04/20/19 08:00 MCHC 31.6 g/dL (31.0-37.0) 04/20/19 08:00 RDW 14.1 % (11.5-15.5) 04/20/19 08:00 Plt Count 336 k/uL (150-450) 04/20/19 08:00 Neutrophils % 63 % 04/19/19 00:40 Lymphocytes % 30 % 04/19/19 00:40 Monocytes % 5 % 04/19/19 00:40 Eosinophils % 1 % 04/19/19 00:40 Basophils % 0 % 04/19/19 00:40 Neutrophils # 6.4 k/uL (1.3-7.7) 04/19/19 00:40 Lymphocytes # 3.1 k/uL (1.0-4.8) 04/19/19 00:40 Monocytes # 0.5 k/uL (0-1.0) 04/19/19 00:40 Eosinophils # 0.1 k/uL (0-0.7) 04/19/19 00:40 Basophils # 0.0 k/uL (0-0.2) 04/19/19 00:40 ESR 55 mm/hr (0-15) H 04/19/19 08:58 Sodium 140 mmol/L (137-145) 04/20/19 08:00 Potassium 3.8 mmol/L (3.5-5.1) 04/20/19 08:00 Chloride 102 mmol/L (98-107) 04/20/19 08:00 Carbon Dioxide 30 mmol/L (22-30) 04/20/19 08:00 Anion Gap 8 mmol/L 04/20/19 08:00 BUN 15 mg/dL (9-20) 04/20/19 08:00 Creatinine 0.76 mg/dL (0.66-1.25) 04/20/19 08:00 Est GFR (CKD-EPI)AfAm >90 (>60 ml/min/1.73 sqM) 04/20/19 08:00 Est GFR (CKD-EPI)NonAf >90 (>60 ml/min/1.73 sqM) 04/20/19 08:00 Glucose 185 mg/dL (74-99) H 04/20/19 08:00 POC Glucose (mg/dL) 251 mg/dL (75-99) H 04/21/19 20:32 POC Glu Director Of Sales Marketing ID Isamar Bose 04/21/19 20:[address] Glu mg/dL 401 04/19/19 08:58 Hemoglobin A1c 15.6 % (4.0-6.0) H 04/19/19 08:58 Calcium 9.0 mg/dL (8.4-10.2) 04/20/19 08:00 Total Bilirubin 0.5 mg/dL (0.2-1.3) 04/20/19 08:00 AST 14 U/L (17-59) L 04/20/19 08:00 ALT 16 U/L (21-72) L 04/20/19 08:00 Alkaline Phosphatase 121 U/L (38-126) 04/20/19 08:00 C-Reactive Protein 173.5 mg/L (<10.0) H 04/19/19 08:58 Total Protein 6.4 g/dL (6.3-8.2) 04/20/19 08:00 Albumin 3.4 g/dL (3.5-5.0) L 04/20/19 08:00 Vancomycin Trough 14.2 ug/mL 04/20/19 08:00 Microbiology 04/19/19 08:58 Blood Blood Culture - Preliminary No Growth after 48 hours Assessment and Plan (1) Diabetes Current Visit: Yes Status: Acute Code(s): E11.9 - TYPE 2 DIABETES MELLITUS WITHOUT COMPLICATIONS SNOMED Code(s): 83284269 (2) Diabetic ulcer of foot associated with diabetes mellitus due to underlying condition, with necrosis of bone Narrative/Plan: 63-year-old male with multiple medical troubles presents to hospital with change to his left foot. He noticed some swelling erythema and ulceration that it was having some drainage. Despite oral outpatient antibiotic therapy he was not improving and constantly was seen by his local hospital. Transferred to our facility for further intervention for the osteomyelitis of the left great toe. The patient has diabetes and understands importance of good diabetes control. Antibiotic therapy has been initiated with vancomycin and Zosyn while cultures are pending. Follow-up x-rays requested to ensure the extent of the current osteomyelitis. If he has not had vascular studies he would need to have those performed. Smoking cessation is advised. Multivitamin with zinc is added to his regimen. Hopefully we'll the following the wound healing center after his discharge which may be a challenge but may do well for wound center therapy. 04/20/2019 the patient has evidence of the osteomyelitis left great toe. There is distinct destruction. With some drainage today he is feeling somewhat better. Cultures are process which will further help. The course of antibiotic therapy at discharge. Unclear with the discharge plan is going to be at this time but intravenous antibiotic therapy will be required and may require rosales rgical intervention. May be a candidate for hyperbaric oxygen therapy. Arterial Dopplers requested. 04/21/2019 patient has evidence of osteomyelitis of the left great toe with evidence of bony destruction. Overall is feeling better in at this time Awaiting the current wound culture tophi finalize course of antibiotics time of his discharge to rehab to receive antibiotic therapy, local wound care which is currently with medical clinic and offloading. As well as improvement of his diabetes care. Patient's hemoglobin A1c was 15.6 with an average blood sugar greater than 400. Patient will need to have significant changes of his diabetes care to prevent foot and limb loss. Arterial Dopplers show evidence of the markedly diminished ankle-brachial index especially to the left lower extremity. If possible would have vascular surgery evaluate before his transfer. This would allow ongoing interventions in the outpatient setting. Current Visit: Yes Status: Acute Code(s): E08.621 - DIABETES MELLITUS DUE TO UNDERLYING CONDITION W FOOT ULCER; L97.504 - NON-PRS CHRONIC ULCER OTH PRT UNSP FOOT W NECROSIS OF BONE SNOMED Code(s): 372694831
[2019-04-22] MEDS: VANCOMYCIN 1,250 MG in SODIUM CHLORIDE 0.9% 250 ML IVPB SCH ×3 (02:41→17:57)
[2019-04-22 07:11] LABS: Glucose,Whole Blood 162 mg/dL (75-99)
[2019-04-22] MEDS: NICOTINE 21MG/24HR PATCH TRANSDERM SCH (07:55)
[2019-04-22] MEDS: INSULIN ASPART (NovoLOG) 100 UNIT/ML VIAL SQ SCH ×4 (07:56→21:09)
[2019-04-22] MEDS: MULTIVITAMINS, THERA 1 EACH TAB PO SCH (07:56)
[2019-04-22] MEDS ORDERED: VANCOMYCIN TROUGH DUE 1 EACH MISC MISCELLANE ONE (09:00)
[2019-04-22 09:45] LABS: African American GFR (CKD) >90 (>60 ml/min/1.73 sqM)
--- NOTE | 2019-04-22 11:18 | P.PN ---
Subjective Progress Note Date: 04/22/19 Principal diagnosis: osteomyelitis Patient was seen and examined. No acute events overnight. Patient with no complaints this morning. Upset that he can shower without removing his IV line. He denies any chest pain, shortness of breath or palpitations. Objective - Vital Signs Vital signs: Vital Signs Temp 97.8 F 04/22/19 04:15 Pulse 70 04/22/19 04:15 Resp 16 04/22/19 04:15 BP 119/67 04/22/19 04:15 Pulse Ox 94 L 04/22/19 04:15 Intake & Output 04/21/19 04/22/19 04/22/19 18:59 06:59 18:59 Intake Total 1080 Output Total 975 Balance 1080 -975 Weight 74.843 kg Intake: Oral 1080 Output: Urine 975 Other: Voiding Method Urinal # Voids 3 3 # Bowel Movements 0 - Exam General: [non toxic], [no distress], [appears at stated age] Derm: [warm], [dry] Head: [atraumatic], [normocephalic], [symmetric] Eyes: [EOMI], [no lid lag], [anicteric sclera] Mouth: [no lip lesion], [mucus membranes moist] Cardiovascular: [S1S2 reg], [no murmur], [positive DP pulse bilateral], Lungs: [CTA bilateral], [no rhonchi, no rales] , [no accessory muscle use] Abdominal: [soft], [ nontender to palpation], [no guarding], [no appreciable organomegaly] Ext: [no gross muscle atrophy], [no edema], [left foot wrapped with no serosanguineous discharge] Neuro: [no focal neuro deficits] Psych: [Alert], [oriented], [appropriate affect] - Labs CBC & Chem 7: 04/20/19 08:00 04/22/19 09:19 Labs: Abnormal Lab Results - Last 24 Hours (Table) 04/21/19 04/21/19 04/21/19 Range/Units 11:16 17:12 20:32 POC Glucose (mg/dL) 267 H 239 H 251 H (75-99) mg/dL 04/22/19 Range/Units 07:08 POC Glucose (mg/dL) 162 H (75-99) mg/dL Microbiology - Last 24 Hours (Table) 04/19/19 08:58 Blood Culture - Preliminary Blood No Growth after 72 hours Assessment and Plan Assessment: Left great toe osteomyelitis Hyperglycemia with history of diabetes mellitus Hypertension As seen on x-ray. ABG shows poor vascular flow. Plans: Continue vancomycin and Zosyn. Follow blood cultures. Follow wound cultures. Follow-up vascular surgery consultation. Follow ID consultation. [id number] glucose 162. Plans: Levemir 10 units at bedtime. Insulin sliding-scale. Regular Accu-Cheks. Hypoglycemic precautions. BP 119/67. Plans: Monitor vitals, adjust medications as necessary. Vascular surgery consulted for poor arterial flow. Continue IV antibiotics, follow up cultures. Will need PICC line after cultures are back. Plans for [facility] at [place].
--- NOTE | 2019-04-22 11:58 | P.ARTDOP ---
Arterial Doppler LOWER EXTREMITY ARTERIAL DOPPLER: DATE OF SERVICE: 04/21/2019 Reason for study: Ulcer left great toe Doppler waveforms: Multiphasic at both femorals and popliteals as well as the right posterior tibial. Other areas are atypical.. Pulse volume recording: Mild distal blunting. Pressure gradients: At the low thigh on the left, across the knee on the right, below the knee bilaterally. Ankle-brachial indices: 0.72 on the right and 0.64 on the left. Toe pressures: 68 on the right, [] on the left Impression: Moderate bilateral fem-pop disease. Clinical correlation recommended..
[2019-04-22 12:04] LABS: Glucose,Whole Blood 252 mg/dL (75-99)
--- NOTE | 2019-04-22 16:48 | P.CON ---
Consult Note - . Consult date: 04/22/19 Assessment/Plan:: Patient is a 63-year-old male who is evaluated today in reference to osteomyelitis of the left great toe. The patient first sought medical attention in this regard approximate 2 weeks ago in [place]. Osteomyelitis of the great toe was identified and the patient was transferred to this institution for further therapy/evaluation. Upon talking the patient the patient denies any trauma to the area. He does admit to bilateral hip and calf claudication occurring at greater than 1 block however less than 2 blocks of ambulation. There is no history of ischemic rest pain or nonhealing ulceration outside of the current issues involving his left great toe. Social history: The patient has a proximally [id number] tobacco use history and continued to smoke until a time of admission. ALLERGIES: Patient has NO KNOWN DRUG ALLERGIES. Surgical history: Left carotid endarterectomy. Past medical history is significant for diabetes mellitus, dyslipidemia, hypertension, as well as diabetic retinopathy and carotid occlusive disease. Physical examination revealed a 63-year-old male who appeared somewhat older than his stated age who is alert cooperative no apparent distress. Head was normocephalic and atraumatic. Neck supple to palpation. No adenopathy. Left carotid bruit is noted. Heart: Regular rate and rhythm without murmur. Lungs: Clear to auscultation. Abdomen: Soft nontender. Normal active bowel sounds. No abdominal hernia noted. No palpable abdominal aortic aneurysm noted. Lower extremities: Femoral, popliteal and posterior tibial pulse noted right lower extremity. On the left the femoral pulse was palpable wall all other pulses are absent. The left great toe is swollen and erythematous. Toes are freely movable and nontender. Modest edema of the left lower extremity is noted about the foot and ankle area. Review of laboratory values demonstrates a sodium of 137 potassium 3.7 chloride of 102 and carbon dioxide of 26. BUNs 12 and creatinine 0.59. White cell count 7.3 with a hemoglobin and hematocrit of 15.2 and 46.7 respectively. Glucose is 311. Radiographs demonstrates osteomyelitis and the left great toe. Arterial Doppler demonstrates an FABIO 0.72 on the right and 0.64 on the left. W aveforms are relatively monophasic throughout suggesting aortoiliac as well as femoral arterial occlusive disease washed pronounced on the left than on the right. Impression: #1 Bilateral lower extremity arterial occlusive disease most likely multilevel involving the aortoiliac as well as the femoral and possibly tibial arterial segments. This is more pronounced on the left than on the right. #2. Osteomyelitis left great toe #3. Diabetes mellitus. #4. Current tobacco abuse (approximately [id number]). #5. Dyslipidemia. #6. Hypertension. #7 Status post left carotid endarterectomy. Recommendation: #1 carotid duplex to evaluate for hemodynamically severe carotid occlusive disease. #2 CT angiogram of the abdomen, pelvis and lower extremities to evaluate for lower extremity arterial occlusive disease with I toward revascularization of the left lower extremity. Will follow this patient along with you during his hospital stay. Thank you very much for allowing me to participate in the care of your patient.
[2019-04-22 17:19] LABS: Glucose,Whole Blood 204 mg/dL (75-99)
--- NOTE | 2019-04-22 19:03 | US ---
EXAMINATION TYPE: US carotid duplex BILAT DATE OF EXAM: 04/22/2019 COMPARISON: NONE CLINICAL HISTORY: carotid stenosis. stenosis EXAM MEASUREMENTS: RIGHT: Peak Systolic Velocity (PSV) cm/sec ----- Right CCA: 50.3 ----- Right ICA: occluded ----- Right ECA: 164.8 ICA/CCA ratio: N/A RIGHT: End Diastole cm/sec ----- Right CCA: 0.0 ----- Right ICA: occluded ----- Right ECA: 7.1 LEFT: Peak Systolic Velocity (PSV) cm/sec ----- Left CCA: 94.7 ----- Left ICA: 118.5 ----- Left ECA: 379.1 ICA/CCA ratio: 1.3 LEFT: End Diastole cm/sec ----- Left CCA: 23.3 ----- Left ICA: 32.5 ----- Left ECA: 21.7 VERTEBRALS (direction of flow): Right Vertebral: Antegrade Left Vertebral: Antegrade Rhythm: Normal Right ICA appears occluded. Increased velocities bilateral ECA's, greater on the left. Moderate plaqu e noted left bifurcation IMPRESSION: There is antegrade flow in the vertebral arteries. There is complete occlusion right int ernal carotid artery. There is bilateral elevated velocity in the external carotid arteries suggestiv e of more than 70% stenosis. There is close to 50% stenosis of the left internal carotid artery. Criteria for Assigning % of Stenosis / Diameter reduction (Estimation based on the indirect measurements of the internal carotid artery velocities (ICA PSV). 1. Normal (no stenosis)=ICA PSV < 125 cm/s: ratio < 2.0: ICA EDV<40 cm/s. 2. Less than 50% stenosis=ICA PSV < 125 cm/s: ratio < 2.0: ICA EDV<40 cm/s. 3. 50 to 69% stenosis=ICA PSV of 125 to 230 cm/s: ration 2.0 ? 4.0: ICA EDV 40-100 cm/s. 4. Greater than 70% stenosis to near occlusion= ICA PSV > 230 cm/s: ratio > 4.0: ICA EDV > 100 cm/s. 5. Near occlusion= ICA PSV velocities may be low or undetectable: variable ratio and ICA EDV. 6. Total occlusion=unable to detect flow.
--- NOTE | 2019-04-22 19:28 | CT ---
CT angiogram of the chest and abdomen with runoffs. History left toe osteomyelitis. Femoral occlusion. Comparison none. TECHNIQUE: Multiple axial sections were obtained from the aortic arch to the bottom of the feet with intravenous contrast. The contrast was Isovue 125 mL. There are 3-D post processed images. FINDINGS: There is pulmonary emphysema and coarse pulmonary interstitial density. Thoracic aorta is atheromatou s. There is no thoracic aortic aneurysm. I see no filling defects in the pulmonary arteries. There ar e no hilar masses. There is patency of the celiac artery and superior mesenteric artery. There is patency of both renal arteries. There is plaque formation at the origins of the celiac artery and superior mesenteric arter y with up to 50% narrowing. There is diffuse plaque in the abdominal aorta. There is 3.4 cm aneurysm of the lower abdominal aorta with irregular plaque formation. Kidneys have normal size and contour. There is one severe cortical cyst medial left kidney. There is no hydronephrosis. Liver spleen and stomach pancreas gallbladder show no focal defect. There is no re troperitoneal adenopathy. There is no mesenteric edema. Bladder distends smoothly. There is patency of the common iliac arteries. There is extensive plaque formation in the iliac arter ies bilaterally. There is bilateral patency of the internal and external iliac arteries. There is bilateral patency of the profunda femoris artery and superficial femoral arteries. There is vertebral plaque formation in the femoral arteries. There is bilateral patency of the popliteal arter ies. There is patency of the tibial artery trifurcations bilaterally. There is arterial flow at both ankles in the anterior and posterior tibial arteries. There is some stenosis of the proximal right an terior tibial artery. There is subcutaneous edema around the feet. IMPRESSION: There is extensive plaque formation in the abdominal aorta and its branches. There is multilevel sten osis of the iliac and femoral arteries up to 50% luminal narrowing. There is aneurysm lower abdominal aorta with extensive plaque. There is 50% stenosis of the distal right common iliac artery. There is more than 50% stenosis proximal right anterior tibial artery. There is diffuse plaque and luminal na rrowing in the branches of tibial arteries bilaterally. There is moderate sigmoid diverticulosis without sign of diverticulitis.
[2019-04-22 20:19] LABS: Glucose,Whole Blood 263 mg/dL (75-99)
[2019-04-22] MEDS: LATANOPROST 0.005% OPHTH DROPS 2.5 ML BTL BOTH EYES SCH (21:10)
[2019-04-22] MEDS: INSULIN DETEMIR (LEVEMIR) 100 UNIT/ML SYR SQ SCH (21:10)
[2019-04-23] MEDS: PIPERACILLIN-TAZOBACTAM 3.375 GM in SODIUM CHLORIDE 0.9% 100 ML IVPB SCH ×4 (00:20→23:54)
[2019-04-23] MEDS: HEPARIN SODIUM,PORCINE 5,000 UNIT/ML 1 ML VIAL SQ SCH ×4 (00:21→23:53)
[2019-04-23] MEDS: VANCOMYCIN 1,250 MG in SODIUM CHLORIDE 0.9% 250 ML IVPB SCH ×3 (02:52→17:21)
[2019-04-23 07:10] LABS: Glucose,Whole Blood 226 mg/dL (75-99)
[2019-04-23] MEDS: MULTIVITAMINS, THERA 1 EACH TAB PO SCH (07:33)
[2019-04-23] MEDS: INSULIN ASPART (NovoLOG) 100 UNIT/ML VIAL SQ SCH ×4 (07:33→21:33)
[2019-04-23] MEDS: NICOTINE 21MG/24HR PATCH TRANSDERM SCH (07:33)
[2019-04-23 08:14] LABS: African American GFR (CKD) >90 (>60 ml/min/1.73 sqM)
--- NOTE | 2019-04-23 10:32 | P.PN ---
Subjective Progress Note Date: 04/23/19 Principal diagnosis: Left toe osteomyelitis Patient was seen and examined. No acute events overnight. Patient reports no changes in his condition. Wound culture sent yesterday after Mondays wound cultures were lost. Patient denies any chest pain, shortness of breath or palpi tations. No nausea or vomiting. No fever or chills. Objective - Vital Signs Vital signs: Vital Signs Temp 98.8 F 04/23/19 04:30 Pulse 66 04/23/19 04:30 Resp 22 04/23/19 04:30 BP 121/72 04/23/19 04:30 Pulse Ox 97 04/23/19 04:30 Intake & Output 04/22/19 04/23/19 04/23/19 18:59 06:59 18:59 Intake Total 830 900 240 Output Total 1325 Balance -495 900 240 Intake: Intake, IV Titration 350 Amount Piperacillin-Tazobactam 3 100 .375 gm In Sodium Chloride 0.9% 100 ml @ 25 mls/hr IVPB Q8HR [facility] Rx# :[id number] Vancomycin 1,250 mg In 250 Sodium Chloride 0.9% 250 ml @ 125 mls/hr IVPB Q8H [facility] Rx#:[id number] Oral 480 900 240 Output: Urine 1325 Other: Voiding Method Urinal # Voids 2 # Bowel Movements 0 - Exam General: [non toxic], [no distress], [appears at stated age] Derm: [warm], [dry] Head: [atraumatic], [normocephalic], [symmetric] Eyes: [EOMI], [no lid lag], [anicteric sclera] Mouth: [no lip lesion], [mucus membranes moist] Cardiovascular: [S1S2 reg], [no murmur], [positive DP pulse bilateral], Lungs: [CTA bilateral], [no rhonchi, no rales] , [no accessory muscle use] Abdominal: [soft], [ nontender to palpation], [no guarding], [no appreciable organomegaly] Ext: [no gross muscle atrophy], [no edema], [left foot wrapped with no serosanguineous discharge] Neuro: [no focal neuro deficits] Psych: [Alert], [oriented], [appropriate affect] - Labs CBC & Chem 7: 04/20/19 08:00 04/23/19 07:40 Labs: Abnormal Lab Results - Last 24 Hours (Table) 04/22/19 04/22/19 04/22/19 Range/Units 12:02 17:17 20:16 POC Glucose (mg/dL) 252 H 204 H 263 H (75-99) mg/dL 04/23/19 Range/Units 06:58 POC Glucose (mg/dL) 226 H (75-99) mg/dL Microbiology - Last 24 Hours (Table) 04/22/19 16:00 Gram Stain - Preliminary Toe - Left First Wound Culture - Preliminary 04/19/19 08:58 Blood Culture - Preliminary Blood No Growth after 72 hours Assessment and Plan Assessment: Left great toe osteomyelitis Severe carotid stenosis post left carotid endarterectomy PAD Hyperglycemia with history of diabetes mellitus Hypertension As seen on x-ray. Blood cultures negative at 72 hours. Plans: Continue vancomycin and Zosyn. Follow blood cultures. Follow wound cultures. Follow-up vascular surgery consultation. Follow ID consultation. As seen on carotid duplex. Plans: Follow vascular surgery recommendations. FABIO shows poor vascular flow. CTA aorta shows 50% of the iliac and femoral with 50% stenosis of the distal right common iliac artery, 50% stenosis proximal right anterior tibial artery. Plans: Start aspirin and Lipitor. Follow vascular surgery recommendation. [id number] glucose 226. Plans: Levemir 10 units at bedtime. Insulin sliding-scale. Regular Accu-Cheks. Hypoglycemic precautions. BP 121/72. Plans: Monitor vitals, adjust medications as necessary. Vascular surgery consulted for poor arterial flow and severe carotid stenosis. Continue IV antibiotics, follow up cultures. Will need PICC line after cultures are back. Plans for [facility] at [place].
[2019-04-23 12:17] LABS: Glucose,Whole Blood 215 mg/dL (75-99)
--- NOTE | 2019-04-23 16:40 | P.PN ---
Subjective Progress Note Date: 04/23/19 Patient seen and examined. No issues per nursing. Thinks his toes getting better Objective - Vital Signs Vital signs: Vital Signs Temp 97.5 F L 04/23/19 14:31 Pulse 75 04/23/19 14:31 Resp 18 04/23/19 14:31 BP 161/65 04/23/19 14:31 Pulse Ox 98 04/23/19 14:31 Intake & Output 04/22/19 04/23/19 04/23/19 18:59 06:59 18:59 Intake Total 830 900 830 Output Total 1325 1100 Balance -495 900 -270 Intake: IV 350 Piperacillin-Tazobactam 3 100 .375 gm In Sodium Chloride 0.9% 100 ml @ 25 mls/hr IVPB Q8HR [facility] Rx# :[id number] Vancomycin 1,250 mg In 250 Sodium Chloride 0.9% 250 ml @ 125 mls/hr IVPB Q8H [facility] Rx#:[id number] Intake, IV Titration 350 Amount Piperacillin-Tazobactam 3 100 .375 gm In Sodium Chloride 0.9% 100 ml @ 25 mls/hr IVPB Q8HR [facility] Rx# :[id number] Vancomycin 1,250 mg In 250 Sodium Chloride 0.9% 250 ml @ 125 mls/hr IVPB Q8H [facility] Rx#:[id number] Oral 480 900 480 Output: Urine 1325 1100 Other: Voiding Method Urinal # Voids 2 # Bowel Movements 0 0 - Exam No acute distress, sitting in bed comfortably No respiratory distress, on O2 Abdomen soft Bilateral lower extremities warm, dry. The left great toe cellulitis is improving. Some drainage of serous appearing fluid - Labs CBC & Chem 7: 04/20/19 08:00 04/23/19 07:40 Labs: Abnormal Lab Results - Last 24 Hours (Table) 04/22/19 04/22/19 04/23/19 Range/Units 17:17 20:16 06:58 POC Glucose (mg/dL) 204 H 263 H 226 H (75-99) mg/dL 04/23/19 Range/Units 12:07 POC Glucose (mg/dL) 215 H (75-99) mg/dL Microbiology - Last 24 Hours (Table) 04/19/19 08:58 Blood Culture - Preliminary Blood No Growth after 96 hours 04/22/19 16:00 Gram Stain - Preliminary Toe - Left First Wound Culture - Preliminary Assessment and Plan Assessment: #1 Bilateral lower extremity arterial occlusive disease #2. Osteomyelitis left great toe #3. Diabetes mellitus #4. Current tobacco abuse (approximately [id number]) #5. Dyslipidemia #6. Hypertension #7 Status post left carotid endarterectomy #8 right internal carotid artery occlusion Plan: Computed tomography scan and other imaging is reviewed. There modest diffuse arterial disease in the bilateral lower extremities but it is appear to be a patient AT and DP at the ankle. At this time the cellulitis appears to be improving clinically and he is responding to antibiotics. There is no emergent indication for operative intervention at this point. Would continue antibiotics for now and follow outpatient for claudication symptoms or if no further progr ession of healing
[2019-04-23 17:10] LABS: Glucose,Whole Blood 213 mg/dL (75-99)
[2019-04-23 20:25] LABS: Glucose,Whole Blood 205 mg/dL (75-99)
[2019-04-23] MEDS ORDERED: ATORVASTATIN 40 MG TAB PO SCH (21:00)
[2019-04-23] MEDS: LATANOPROST 0.005% OPHTH DROPS 2.5 ML BTL BOTH EYES SCH (21:33)
[2019-04-23] MEDS: INSULIN DETEMIR (LEVEMIR) 100 UNIT/ML SYR SQ SCH (21:33)
[2019-04-23 22:33] VITALS: RESP 20
[2019-04-24] MEDS: VANCOMYCIN 1,250 MG in SODIUM CHLORIDE 0.9% 250 ML IVPB SCH (01:42)
[2019-04-24 07:06] LABS: Glucose,Whole Blood 190 mg/dL (75-99)
[2019-04-24] MEDS: PIPERACILLIN-TAZOBACTAM 3.375 GM in SODIUM CHLORIDE 0.9% 100 ML IVPB SCH ×2 (08:07→16:08)
[2019-04-24] MEDS: INSULIN ASPART (NovoLOG) 100 UNIT/ML VIAL SQ SCH ×2 (08:08→12:53)
[2019-04-24] MEDS: MULTIVITAMINS, THERA 1 EACH TAB PO SCH (08:08)
[2019-04-24] MEDS: NICOTINE 21MG/24HR PATCH TRANSDERM SCH (08:08)
[2019-04-24] MEDS: HEPARIN SODIUM,PORCINE 5,000 UNIT/ML 1 ML VIAL SQ SCH ×2 (08:08→16:07)
--- NOTE | 2019-04-24 08:19 | P.PN ---
Subjective Progress Note Date: 04/24/19 Principal diagnosis: left toe osteomyelitis 63-year-old male with PMH of severe carotid stenosis post left carotid endarterectomy, PAD, diabetes mellitus and hypertension presents the ED for left toe wound. He was found to have osteomyelitis on x-ray. Patient was empirically started on vancomycin and Zosyn. Initially, cultures were collected but was lost due to system error. Repeat cultures of been negative so far. Vascular studies were performed which showed poor vascular flow to the lower extremities. As for surgery was consulted and recommended outpatient follow-up if trial of antibiotics did not help. Patient was seen and examined. No acute events overnight. Patient reports no changes in his overall condition. He denies any chest pain, shortness of breath or palpitations. Objective - Vital Signs Vital signs: Vital Signs Temp 98.3 F 04/24/19 05:19 Pulse 64 04/24/19 05:19 Resp 20 04/24/19 05:19 BP 146/78 04/24/19 05:19 Pulse Ox 98 04/24/19 05:19 Intake & Output 04/23/19 04/24/19 04/24/19 18:59 06:59 18:59 Intake Total 830 300 Output Total 1900 Balance -1070 300 Intake: IV 350 Piperacillin-Tazobactam 3 100 .375 gm In Sodium Chloride 0.9% 100 ml @ 25 mls/hr IVPB Q8HR [facility] Rx# :[id number] Vancomycin 1,250 mg In 250 Sodium Chloride 0.9% 250 ml @ 125 mls/hr IVPB Q8H [facility] Rx#:[id number] Oral 480 300 Output: Urine 1900 Other: Voiding Method Urinal # Voids 1 2 # Bowel Movements 0 0 - Exam General: [non toxic], [no distress], [appears at stated age] Derm: [warm], [dry] Head: [atraumatic], [normocephalic], [symmetric] Eyes: [EOMI], [no lid lag], [anicteric sclera] Mouth: [no lip lesion], [mucus membranes moist] Cardiovascular: [S1S2 reg], [no murmur], [positive DP pulse bilateral], Lungs: [CTA bilateral], [no rhonchi, no rales] , [no accessory muscle use] Abdominal: [soft], [ nontender to palpation], [no guarding], [no appreciable organomegaly] Ext: [no gross muscle atrophy], [no edema], [left foot wrapped with no serosanguineous discharge] Neuro: [no focal neuro deficits] Psych: [Alert], [oriented], [appropriate affect] - Labs CBC & Chem 7: 04/20/19 08:00 04/23/19 07:40 Labs: Abnormal Lab Results - Last 24 Hours (Table) 04/23/19 04/23/19 04/23/19 Range/Units 12:07 17:06 20:21 POC Glucose (mg/dL) 215 H 213 H 205 H (75-99) mg/dL 04/24/19 Range/Units 07:02 POC Glucose (mg/dL) 190 H (75-99) mg/dL Microbiology - Last 24 Hours (Table) 04/19/19 08:58 Blood Culture - Preliminary Blood No Growth after 96 hours Assessment and Plan Assessment: Left great toe osteomyelitis Severe carotid stenosis post left carotid endarterectomy PAD Hyperglycemia with history of diabetes mellitus Hypertension As seen on x-ray. Blood cultures negative at 96 hours. Wound cultures prelim negative. Plans: Continue vancomycin and Zosyn. Follow blood cultures. Follow wound cultures. Follow-up vascular surgery consultation. Follow ID consultation. As seen on carotid duplex. Plans: Vascular surgery follow-up outpatient. FABIO shows poor vascular flow. CTA aorta shows 50% of the iliac and femoral with 50% stenosis of the distal right common iliac artery, 50% stenosis proximal right anterior tibial artery. Vascular surgery recommendations for outpatient follow-up. Plans: Start aspirin and Lipitor. Vascular surgery follow-up outpatient. Prlxj-pj-zsjr glucose 190. Plans: Levemir 10 units at bedtime. Insulin sliding-scale. Regular Accu-Cheks. Hypoglycemic precautions. BP 146/78. Plans: Monitor vitals, adjust medications as necessary. Vascular surgery recommends outpatient follow up. Patient on IV antibiotics, cultures so far negative. We will discuss with Dr. Marie regarding choice of antibiotics. We will need PICC line after cultures are back. Plans for [facility] at [place].
[2019-04-24] MEDS ORDERED: ASPIRIN 81 MG PO SCH (09:00)
[2019-04-24 09:56] LABS: Basophils # (A) 0.1 k/uL (0-0.2); Basophils % (A) 1 %; Eosinophils # (A) 0.3 k/uL (0-0.7); Eosinophils % (A) 4 %; HCT 43.3 % (39.0-53.0); HGB 14.1 gm/dL (13.0-17.5); Hypochromasia Slight; Lymphocytes # (A) 2.5 k/uL (1.0-4.8); Lymphocytes % (A) 32 %; MCH 27.6 pg (25.0-35.0); MCHC 32.5 g/dL (31.0-37.0); Mean Platelet Volume 7.4; Monocytes # (A) 0.4 k/uL (0-1.0); Monocytes % (A) 5 %; Neutrophils # (A) 4.5 k/uL (1.3-7.7); Neutrophils % (A) 57 %; Platelet Count 332 k/uL (150-450); RBC 5.09 m/uL (4.30-5.90); RDW 14.4 % (11.5-15.5); WBC 7.8 k/uL (3.8-10.6)
[2019-04-24 09:57] LABS: INR 0.9 (<1.2); Prothrombin Time 10.2 sec (9.0-12.0)
[2019-04-24 10:03] LABS: ALT <6 U/L (21-72); AST 15 U/L (17-59); African American GFR (CKD) >90 (>60 ml/min/1.73 sqM); Albumin 3.4 g/dL (3.5-5.0); Alkaline Phosphatase 133 U/L (38-126); Anion Gap 9 mmol/L; Blood Urea Nitrogen 16 mg/dL (9-20); Calcium 9.3 mg/dL (8.4-10.2); Carbon Dioxide 26 mmol/L (22-30); Chloride 105 mmol/L (98-107); Glucose 219 mg/dL (74-99); Sodium 140 mmol/L (137-145); Total Bilirubin 0.5 mg/dL (0.2-1.3); Total Protein 6.5 g/dL (6.3-8.2)
--- NOTE | 2019-04-24 11:12 | IR ---
PICC LINE PLACEMENT: HISTORY: Infection requiring long-term antibiotic therapy PROCEDURE: Ultrasound and fluoroscopic guidance of PICC line placement. COMPLICATIONS: None ANESTHESIA: 1. 1% Lidocaine locally. FINDINGS/TECHNIQUE: The procedure was explained to the patient. The risks, complications, benefits and alternatives were discussed and any questions were answered. Informed consent was obtained. The patient was placed supine on the fluoroscopic table and prepped and draped in the usual sterile fash ion. Utilizing a 21 gauge needle and sonographic and fluoroscopic guidance, access in the left basi lic vein was achieved and there is placement of a 0.018 guidewire. The vein is patent. A 4-F sheath was placed over the guidewire. The guidewire and dilator were removed and a 4-F. PICC line was plac ed through the sheath with the tip at the level of the SVC. The sheath was removed, the catheter was flushed and sutured into position. The patient was stable throughout the procedure and remained sta ble upon discharge from the Department of Radiology. The vein puncture was patent under ultrasound. A lundberg scale image was obtained to document patency of the vein punctured. All elements of the maximal barrier technique were utilized. FLUOROSCOPY TIME: 0.1 minute and one image submitted IMPRESSION: Successful PICC line placement under ultrasound and fluoroscopic guidance.
[2019-04-24 12:31] LABS: Glucose,Whole Blood 235 mg/dL (75-99)
[2019-04-24 13:43] VITALS: BP 150/73; PULSE 71; TEMP 97.8
--- NOTE | 2019-04-24 15:14 | P.DS ---
Providers Date of admission: 04/19/19 01:49 Expected date of discharge: 04/24/19 Attending physician: Juju Boggs MD Consults: 04/19/19 08:34 Consult Physician Routine Consulting Provider: Tyrone Bliss Consult Reason/Comments: osteomylitis left great toe Do you want consulting provider notified?: Yes 04/22/19 10:35 Consult Physician Routine Consulting Provider: Ac Nj Consult Reason/Comments: OM with poor arterial flow to foot. Do you want consulting provider notified?: Yes Primary care physician: Stated None Hospital Course: 63-year-old male with PMH of severe carotid stenosis post left carotid endarterectomy, PAD, diabetes mellitus and hypertension presents the ED for left toe wound. He was found to have osteomyelitis on x-ray. Patient was empirically started on vancomycin and Zosyn. Initially, cultures were collected but was lost due to system error. Repeat cultures of been negative so far. Vascular studies were performed which showed poor vascular flow to the lower extremities. As for surgery was consulted and recommended outpatient follow-up if trial of antibiotics did not help. Osteomyelitis was seen on foot x-ray. Blood cultures are negative at 96 hours. Wound cultures were prelim negative at the time of discharge. Patient was initially started on vancomycin and Zosyn. Infectious disease was consulted and recommended discharge with PICC line and Zosyn. ABIs were obtained which showed poor vascular flow to the lower extremities. CTA of the aorta showed 50% of the iliac and femoral with 50% stenosis of the distal right common iliac artery, 50% stenosis of the proximal right anterior tibial artery. Vascular surgery recommended outpatient follow-up. As discussed with Dr. Bliss, plan is to DC patient home to [facility] with PICC line for IV Zosyn. Left great toe osteomyelitis Severe carotid stenosis post left carotid endarterectomy PAD Hyperglycemia with history of diabetes mellitus Hypertension Pertinent Studies: Foot x-ray, FABIO, carotid ultrasound, CTA aorta with runoff Patient Condition at Discharge: Stable Plan - Discharge Summary New Discharge Prescriptions: New Piperacillin-Tazobactam [Zosyn] 3.375 gm IVPB Q6H #168 bag Aspirin 81 mg PO DAILY #30 chew Insulin Detemir (Levemir) [Levemir] 10 unit SQ HS #0 syr Atorvastatin [Lipitor] 40 mg PO HS #30 tab Multivitamins, Thera [Multivitamin (formulary)] 1 each PO DAILY tab oxyCODONE-APAP 5-325MG [Percocet 5-325 mg] 1 each PO Q6HR PRN #12 tab PRN Reason: Pain Piperacillin-Tazobactam [Zosyn] 3.375 gm IVPB Q8HR vial Continue Latanoprost [Xalatan 0.005%] 1 drop BOTH EYES HS Ibuprofen [Motrin] 800 mg PO Q6H PRN PRN Reason: Pain Discharge Medication List Ibuprofen [Motrin] 800 mg PO Q6H PRN 04/19/19 [History] Latanoprost [Xalatan 0.005%] 1 drop BOTH EYES HS 04/19/19 [History] Piperacillin-Tazobactam [Zosyn] 3.375 gm IVPB Q6H #168 bag 04/21/19 [Rx] Aspirin 81 mg PO DAILY #30 chew 04/24/19 [Rx] Atorvastatin [Lipitor] 40 mg PO HS #30 tab 04/24/19 [Rx] Insulin Detemir (Levemir) [Levemir] 10 unit SQ HS #0 syr 04/24/19 [Rx] Multivitamins, Thera [Multivitamin (formulary)] 1 each PO DAILY tab 04/24/19 [Rx] Piperacillin-Tazobactam [Zosyn] 3.375 gm IVPB Q8HR vial 04/24/19 [Rx] oxyCODONE-APAP 5-325MG [Percocet 5-325 mg] 1 each PO Q6HR PRN #12 tab 04/24/19 [Rx] Follow up Appointment(s)/Referral(s): Nonstaff,Physician [REFERRING] - 1-2 days Tyrone Bliss MD [STAFF PHYSICIAN] - 1 Week Ambulatory/Diagnostic Orders: Basic Metabolic Panel [LAB.AMB] Location: None Selected Complete Blood Count w/diff [LAB.AMB] Location: None Selected Miscellaneous Lab Order [LAB.AMB] Location: None Selected Discharge/Stand Alone Forms: Work/Release Restrictions Form Discharge Disposition: TRANSFER TO [facility]
--- NOTE | 2019-04-24 17:43 | P.PN ---
Subjective Progress Note Date: 04/24/19 63-year-old male who has multiple medical troubles that includes diabetes, hypertension, obesity and heart disease presents as a transfer from outside hospital. The patient relates that he's had troubles over the last week with the foot. He's noticed increasing amount of swelling to the left great toe. He's applied some local care. Because the local walk-in clinic and Keflex was given. Despite this he had no improvement as he presented to his local hospital. There he was found evidence of leukocytosis, the significant diabetic foot ulceration and x-ray showed evidence of osteomyelitis and constantly was transferred to our facility for further evaluation. At this time he relates th at he feels somewhat poorly due to the difficulty. He is concerned about the foot infection but has ongoing difficulties with his hyperglycemia. 04/20/2019 the patient which is feeling somewhat better than at the toe is opened and drained some purulent material which was sent to the lab for culture. Blood sugars are slightly improved and the radiology department is verified the significant ostial myelitis left great toe of almost the entire distal phalanx. Patient denies fevers or chills discharge plan is being evaluated. 04/21/2019 patient does seem to be feeling somewhat better. Is having no significant pain to the toe since the site has drained. X-ray reveals evidence of the osteomyelitis of the left great toe of the entire distal phalanx. Transfer to rehab is being evaluated at this time for ongoing antibiotic therapy. 04/24/2019 patient is starting to feel somewhat better. He is very anxious to go home. He does have confusion and some dementia Objective - Vital Signs Vital signs: Vital Signs Temp 97.8 F 04/24/19 13:35 Pulse 71 04/24/19 13:35 Resp 20 04/24/19 13:35 BP 150/73 04/24/19 13:35 Pulse Ox 97 04/24/19 13:35 Intake & Output 04/23/19 04/24/19 04/24/19 18:59 06:59 18:59 Intake Total 830 300 480 Output Total 1900 Balance -1070 300 480 Intake: IV 350 Piperacillin-Tazobactam 3 100 .375 gm In Sodium Chloride 0.9% 100 ml @ 25 mls/hr IVPB Q8HR [facility] Rx# :[id number] Vancomycin 1,250 mg In 250 Sodium Chloride 0.9% 250 ml @ 125 mls/hr IVPB Q8H [facility] Rx#:[id number] Oral 480 300 480 Output: Urine 1900 Other: Voiding Method Urinal # Voids 1 2 2 # Bowel Movements 0 0 0 - Exam HEENT: Anicteric conjunctiva are pink and moist nasal mucosa grossly intact without significant lesions, there is no thrush.poor dentition Neck: The neck is supple without significant lymphadenopathy or thyromegaly. Lungs: Symmetrical air entry with scattered wheezes in lung roman without shahriar bronchial sounds in all dullness or egophony. Heart: Regular rate and rhythm with an audible S1-S2, no S3 no S4. There is no significant murmur click or rub, PMI was nondisplaced. Abdomen: Positive bowel sounds soft and nontender without palpable masses or organomegaly. There was no guarding or rebound. Extremities: The upper extremities have excellent pulses they are symmetric, no significant petechiae or telangiectasia. No splinter hemorrhages were noted. The right lower extremity is without acute abnormality is. The left foot shows evidence of the ulceration and swelling to the left great toe with distinct erythema and deformity. there is now some drainage which was sent to the laboratory for culture. There is some erythema and swelling onto the dorsum of the foot and minimal ascending erythema. It is not very tender. Neuro: Awake alert oriented to person place - Labs CBC & Chem 7: 04/24/19 09:23 04/24/19 09:23 Labs: Abnormal Lab Results - Last 24 Hours (Table) 04/23/19 04/24/19 04/24/19 Range/Units 20:21 07:02 09:23 Glucose 219 H (74-99) mg/dL POC Glucose (mg/dL) 205 H 190 H (75-99) mg/dL AST 15 L (17-59) U/L ALT <6 L (21-72) U/L Alkaline Phosphatase 133 H (38-126) U/L Albumin 3.4 L (3.5-5.0) g/dL 04/24/19 Range/Units 12:30 Glucose (74-99) mg/dL POC Glucose (mg/dL) 235 H (75-99) mg/dL AST (17-59) U/L ALT (21-72) U/L Alkaline Phosphatase (38-126) U/L Albumin (3.5-5.0) g/dL Microbiology - Last 24 Hours (Table) 04/19/19 08:58 Blood Culture - Preliminary Blood No Growth after 120 hours Laboratory Results WBC 7.8 k/uL (3.8-10.6) 04/24/19 09:23 RBC 5.09 m/uL (4.30-5.90) 04/24/19 09:23 Hgb 14.1 gm/dL (13.0-17.5) 04/24/19 09:23 Hct 43.3 % (39.0-53.0) 04/24/19 09:23 MCV 85.0 fL (80.0-100.0) 04/24/19 09:23 MCH 27.6 pg (25.0-35.0) 04/24/19 09:23 MCHC 32.5 g/dL (31.0-37.0) 04/24/19 09:23 RDW 14.4 % (11.5-15.5) 04/24/19 09:23 Plt Count 332 k/uL (150-450) 04/24/19 09:23 Neutrophils % 57 % 04/24/19 09:23 Lymphocytes % 32 % 04/24/19 09:23 Monocytes % 5 % 04/24/19 09:23 Eosinophils % 4 % 04/24/19 09:23 Basophils % 1 % 04/24/19 09:23 Neutrophils # 4.5 k/uL (1.3-7.7) 04/24/19 09:23 Lymphocytes # 2.5 k/uL (1.0-4.8) 04/24/19 09:23 Monocytes # 0.4 k/uL (0-1.0) 04/24/19 09:23 Eosinophils # 0.3 k/uL (0-0.7) 04/24/19 09:23 Basophils # 0.1 k/uL (0-0.2) 04/24/19 09:23 Hypochromasia Slight 04/24/19 09:23 ESR 55 mm/hr (0-15) H 04/19/19 08:58 PT 10.2 sec (9.0-12.0) 04/24/19 09:23 INR 0.9 (<1.2) 04/24/19 09:23 Sodium 140 mmol/L (137-145) 04/24/19 09:23 Potassium 4.0 mmol/L (3.5-5.1) 04/24/19 09:23 Chloride 105 mmol/L (98-107) 04/24/19 09:23 Carbon Dioxide 26 mmol/L (22-30) 04/24/19 09:23 Anion Gap 9 mmol/L 04/24/19 09:23 BUN 16 mg/dL (9-20) 04/24/19 09:23 Creatinine 0.72 mg/dL (0.66-1.25) 04/24/19 09:23 Est GFR (CKD-EPI)AfAm >90 (>60 ml/min/1.73 sqM) 04/24/19 09:23 Est GFR (CKD-EPI)NonAf >90 (>60 ml/min/1.73 sqM) 04/24/19 09:23 Glucose 219 mg/dL (74-99) H 04/24/19 09:23 POC Glucose (mg/dL) 235 mg/dL (75-99) H 04/24/19 12:30 POC Glu Clin Application Specialist MARGARET Dimple Whaley 04/24/19 12:[address] Glu mg/dL 401 04/19/19 08:58 Hemoglobin A1c 15.6 % (4.0-6.0) H 04/19/19 08:58 Calcium 9.3 mg/dL (8.4-10.2) 04/24/19 09:23 Total Bilirubin 0.5 mg/dL (0.2-1.3) 04/24/19 09:23 AST 15 U/L (17-59) L 04/24/19 09:23 ALT <6 U/L (21-72) L 04/24/19 09:23 Alkaline Phosphatase 133 U/L (38-126) H 04/24/19 09:23 C-Reactive Protein 173.5 mg/L (<10.0) H 04/19/19 08:58 Total Protein 6.5 g/dL (6.3-8.2) 04/24/19 09:23 Albumin 3.4 g/dL (3.5-5.0) L 04/24/19 09:23 Vancomycin Trough 16.4 ug/mL 04/22/19 09:19 Microbiology 04/19/19 08:58 Blood Blood Culture - Preliminary No Growth after 120 hours 04/22/19 16:00 Toe - Left First Gram Stain - Preliminary 04/22/19 16:00 Toe - Left First Wound Culture - Preliminary Assessment and Plan (1) Diabetes Current Visit: Yes Status: Acute Code(s): E11.9 - TYPE 2 DIABETES MELLITUS WITHOUT COMPLICATIONS SNOMED Code(s): 76918911 (2) Diabetic ulcer of foot associated with diabetes mellitus due to underlying condition, with necrosis of bone Narrative/Plan: 63-year-old male with multiple medical troubles presents to hospital with change to his left foot. He noticed some swelling erythema and ulceration that it was having some drainage. Despite oral outpatient antibiotic therapy he was not improving and constantly was seen by his local hospital. Transferred to our facility for further intervention for the osteomyelitis of the left great toe. The patient has diabetes and understands importance of good diabetes control. Antibiotic therapy has been initiated with vancomycin and Zosyn while cultures are pending. Follow-up x-rays requested to ensure the extent of the current osteomyelitis. If he has not had vascular studies he would need to have those performed. Smoking cessation is advised. Multivitamin with zinc is added to his regimen. Hopefully we'll the following the wound healing center after his discharge which may be a challenge but may do well for wound center therapy. 04/20/2019 the patient has evidence of the osteomyelitis left great toe. There is distinct destruction. With some drainage today he is feeling somewhat better. Cultures are process which will further help. The course of antibiotic therapy at discharge. Unclear with the discharge plan is going to be at this time but intravenous antibiotic therapy will be required and may require surgical intervention. May be a candidate for hyperbaric oxygen therapy. Arterial Dopplers requested. 04/21/2019 patient has evidence of osteomyelitis of the left great toe with evidence of bony destruction. Overall is feeling better in at this time Awaiting the current wound culture tophi finalize course of antibiotics time of his discharge to rehab to receive antibiotic therapy, local wound care which is currently with medical clinic and offloading. As well as improvement of his diabetes care. Patient's hemoglobin A1c was 15.6 with an average blood sugar greater than 400. Patient will need to have significant changes of his diabetes care to prevent foot and limb loss. Arterial Dopplers show evidence of the markedly diminished ankle-brachial index especially to the left lower extremity. If possible would have vascular surgery evaluate before his transfer. This would allow ongoing interventions in the outpatient setting. 04/24/2019 the patient has improvement. He will be discharged to extended care facility to receive his intravenous antibiotic therapy for the osteomyelitis of his left foot. He is being followed with vascular surgery and may require further surgical interventions in the outpatient setting. The outpatient intravenous antibiotic therapy has been arranged with Radha and he'll be transferred to the extended care facility [facility]. Current Visit: Yes Status: Acute Code(s): E08.621 - DIABETES MELLITUS DUE TO UNDERLYING CONDITION W FOOT ULCER; L97.504 - NON-PRS CHRONIC ULCER OTH PRT UNSP FOOT W NECROSIS OF BONE SNOMED Code(s): 976564270
== END 2019-04-24 17:42 | DRG 638 ==
LOC: EC 23:36 → 4MS4W 04-19 01:49
PROVIDERS: ADMIT Internal Medicine; ATTEND Internal Medicine
PROC: 02HV33Z Insertion of Infusion Device into Superior Vena Cava, Percutaneous Approach (ICD-10-PCS; principal; 2019-04-24 10:30)
DX: E11.69 Type 2 diabetes mellitus with other specified complication (principal); M86.9 Osteomyelitis, unspecified; E11.65 Type 2 diabetes mellitus with hyperglycemia; E11.319 Type 2 diabetes mellitus with unspecified diabetic retinopathy without macular edema; E11.39 Type 2 diabetes mellitus with other diabetic ophthalmic complication; E11.51 Type 2 diabetes mellitus with diabetic peripheral angiopathy without gangrene; E11.621 Type 2 diabetes mellitus with foot ulcer; E66.9 Obesity, unspecified; Z68.23 Body mass index [BMI] 23.0-23.9, adult; E78.5 Hyperlipidemia, unspecified; F03.90 Unspecified dementia, unspecified severity, without behavioral disturbance, psychotic disturbance, mood disturbance, and anxiety; F17.200 Nicotine dependence, unspecified, uncomplicated; H54.61 Unqualified visual loss, right eye, normal vision left eye; I10 Essential (primary) hypertension; I70.8 Atherosclerosis of other arteries; L97.524 Non-pressure chronic ulcer of other part of left foot with necrosis of bone; M10.9 Gout, unspecified; Z79.2 Long term (current) use of antibiotics; Z83.3 Family history of diabetes mellitus; Z91.19 Patient's noncompliance with other medical treatment and regimen; Z79.899 Other long term (current) drug therapy; Z79.1 Long term (current) use of non-steroidal anti-inflammatories (NSAID); Y63.6 Underdosing and nonadministration of necessary drug, medicament or biological substance
CPT/HCPCS: 36415; 36573; 71275; 75635; 80053; 80202; 82565; 83036; 85025; 85027; 85610; 85652; 86140; 87040; 87070; 87205; 93880; 93923; 99284